=== PATIENT | female | born 1985 | race Caucasian/White ===

== ENCOUNTER 2019-04-08 13:51 | Emergency (ER) | payer SELFPAY ==
[2019-04-08 14:04] VITALS: BP 114/73; PULSE 91; RESP 16; TEMP 36.7; O2SAT 98; BMI 25.7
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
[2019-04-08 14:28] VITALS: BP 114/73; PULSE 80; RESP 16; O2SAT 98
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
[2019-04-08] MEDS: HYDROcodone-acetaminophen 5-325 mg Tablet 1 TAB PO (15:19)
[2019-04-08] MEDS: ondansetron 2 mg/ML SDV 2 mL 4 MG IVP (15:19)
[2019-04-08] MEDS: tetanus-dipt-pertussis 0.5 mL SDV IM (15:19)
[2019-04-08 15:22] LABS: Basophils % 0.3 %; Eosinophils # 0.1 10^3/uL (0.0-0.8); Eosinophils % 0.6 %; Hematocrit 37.3 % (37.0-47.0); Hemoglobin 12.1 g/dL (11.5-15.3); Lymphocytes # 1.4 10^3/uL (0.8-4.8); Lymphocytes % 14.6 %; Mean Corpuscular HGB Conc 32.4 g/dL (30.0-36.0); Mean Corpuscular Hemoglobin 30.6 pg (28.0-34.0); Mean Corpuscular Volume 94.4 fL (81-99); Mean Platelet Volume 10.1 fL (7.4-10.4); Monocytes # 0.7 10^3/uL (0.2-0.9); Monocytes % 7.9 %; Neutrophils # 7.1 10^3/uL (1.8-7.7); Neutrophils % 76.4 %; Nucleated Red Blood Cells % 0 %; Platelet Count 262 10^3/cmm (130-400); Red Blood Count 3.95 10^6/uL (4.1-5.3); Red Cell Distribution Width 12.3 % (12.1-15.1); White Blood Count 9.3 10^3/uL (4.0-10.0)
--- NOTE | 2019-04-08 15:25 | PC.NURSE ---
Patient ambulated to restroom for urine collection
--- NOTE | 2019-04-08 15:28 | PC.NURSE ---
Patient ambulating back from bathroom to room
[2019-04-08 15:35] LABS: Alanine Aminotransferase 8 U/L (0-33); Alkaline Phosphatase 69 IU/L (35-105); Anion Gap 15.1 (5-19); Aspartate Amino Transferase 16 U/L (0-32); Blood Urea Nitrogen 23 mg/dL (6-20); Calcium 9.7 mg/dL (8.5-10.5); Carbon Dioxide 23 mmol/L (22-29); Chloride 105 mmol/L (98-107); Globulin 2.7 g/dL (1.3-4.6); Glomerular Filtration Rate 115.9 mL/min (90-130); Glucose 112 mg/dL (65-115); Potassium 4.1 mmol/L (3.5-5.1); Sodium 139 mmol/L (136-145); Total Bilirubin 0.5 mg/dL (0.15-1.2); Total Protein 6.7 g/dL (6.6-8.7)
[2019-04-08 15:38] LABS: HCG Qualitative Urine. Negative (Negative)
--- NOTE | 2019-04-08 15:48 | PC.NURSE ---
Patient to CT via stretcher
[2019-04-08 16:38] VITALS: BP 116/69; PULSE 77; O2SAT 96
[2019-04-08] MEDS: mupirocin oint 22 gm 1 APPLIC TOPICAL (17:24)
[2019-04-08 17:25] VITALS: BP 116/69; PULSE 75; RESP 16; O2SAT 98
--- NOTE | 2019-04-08 17:25 | PC.NURSE ---
Wound dressing applied to right posterior elbow and right upper buttocks.
== END 2019-04-08 17:26 | disposition home or self-care (01) ==
PROVIDERS: Emergency Provider Family Medicine
DX: S30.810A Abrasion of lower back and pelvis, initial encounter (principal); S40.211A Abrasion of right shoulder, initial encounter; S50.311A Abrasion of right elbow, initial encounter; S40.811A Abrasion of right upper arm, initial encounter; S50.312A Abrasion of left elbow, initial encounter; V69.3XXA Occupant (driver) (passenger) of heavy transport vehicle injured in unspecified nontraffic accident, initial encounter; Y92.410 Unspecified street and highway as the place of occurrence of the external cause; F17.200 Nicotine dependence, unspecified, uncomplicated
CPT/HCPCS: 36415; 70450; 71045; 72040; 72072; 72100; 73030; 73080; 80053; 81025; 85025; 90471; 90715; 96361; 96374; 96375; 99281; 99282; 99283; J2405

== ENCOUNTER 2019-12-26 17:55 | Emergency (ER) | payer MEDICAID, SELFPAY ==
[2019-12-26 18:01] VITALS: BP 125/81; PULSE 89; RESP 18; TEMP 36.6; O2SAT 97; BMI 25.7
--- NOTE | 2019-12-26 18:19 | ED_ITS ---
HPI - URI/Sore Throat General: Chief Complaint: Upper Respiratory Infection Stated Complaint: Sinus Infection/Ear Aches/Loss of Smell Time Seen by Provider: 12/26/19 18:04 History of Present Illness: HPI Narrative: Patient complains about pain inside her left nostril left sinus maxillary area pain is been gone for couple days denies fever says she has had a lot of chills says she has had a loss of smell and taste now denies cough at original interviewed and says she has had a dry cough now for couple days MD elicited complaint: cough, nasal congestion and sinus pain Onset (ago): day(s) Consistency: constant Severity: moderate Description of mucous: watery Able to tolerate fluids by mouth: Yes Exacerbating factors: nothing Relieving factors: nothing Associated symptoms: Reports no associated symptoms and nasal congestion; Deny abdominal pain, chills, chest pain, fever(s), headache(s), nausea or vomiting Review of Systems Const: Denies: fever(s), chills or body aches Eyes: Denies: change in vision or blurry vision ENMT: Reports: nasal congestion and other (Sinus pain); Denies: throat pain Card: Denies: chest pain or dyspnea on exertion Resp: Reports: non-productive cough; Denies: dyspnea or productive cough GI: Denies: abdominal pain, nausea or vomiting Musc: Denies: extremity pain Skin/Breast: Denies: rash Neuro: Denies: headache(s) Psych: Denies: anxiety or depression Shay/Lymph: Denies: easy bruising PFSH ED PFSH: Social History Smoking and tobacco status: current every day smoker Physical Exam Const: COMMON NORMALS: no acute distress, average body habitus and patient oriented x3 HENMT: COMMON NORMALS: normocephalic HEAD & SCALP: normal to inspection and normocephalic FACE & SINUS: sinus tenderness OTHER: Does have pain left TMJ area Eye: COMMON NORMALS: conjunctivae normal GENERAL EYE: appearance normal, both eyes and all related structures CONJUNCTIVA: Yes conjunctivae normal Neck/C-Spine: COMMON NORMALS: no JVD Chest: COMMONS NORMALS: normal inspection of the chest Resp: COMMON NORMALS: normal respiratory effort and clear to auscultation bilaterally AUSCULTATION: clear to auscultation bilaterally Cardio: COMMON NORMALS: no JVD, regular rate and regular rhythm RATE: regular rate RHYTHM: regular rhythm GI: COMMON NORMALS: Normal to inspection, nondistended, normoactive bowel sounds present Extremity: COMMON NORMALS: normal to inspection and full ROM Neuro: COMMON NORMALS: patient oriented x3 Course Vital Signs: Vital signs: Vital Signs Temperature 97.9 F 12/26/19 18:01 Pulse Rate 89 12/26/19 18:01 Respiratory Rate 18 12/26/19 18:01 Blood Pressure 125/81 12/26/19 18:01 Pulse Oximetry 97 12/26/19 18:01 Discharge Plan Discharge Patient Disposition: Home Clinical Impression: Sinusitis Qualifiers: Sinusitis location: maxillary Chronicity: acute Recurrence: non-recurrent Qualified Code(s): J01.00 - Acute maxillary sinusitis, unspecified Condition: Stable Prescriptions: New Bactrim DS 800-160 mg tablet 1 tab PO BID 14 Days Qty: 28 RF: 0 prednisone 10 mg tablet 10 mg PO DAILY Qty: 7 RF: 0 No Action Tylenol Extra Strength 500 mg Tablet 1,000 mg PO PRN RF: 0 Discharge Orders: Discharge Order (Routine); Ordered 12/26/19 Ordered By: Abiel Hale Discharge Diet: Usual diet Discharge Activity: Increase activity as tolerated Patient Instructions: Sinusitis (ED) Activity Restrictions/Additional Instructions: Follow-up with medical provider as directed. Take medications as prescribed. Return to the ER or your medical provider if condition worsens. Please read and understand discharge instructions. If any questions ask please. Up with [facility] urgent care family practice clinic if no significant improvement. Discussed with him possibility of TMJ on that left side also please Coding Level of Care Code ED Internet Marketing Intern for Elkin Mendoza
[2019-12-26] MEDS: sulfamethoxazole-trimeth DS 160-800 mg Tablet 1 TAB PO (18:30)
[2019-12-26] MEDS: predniSONE 10 mg Tablet PO (18:30)
[2019-12-29 22:23] LABS: Quest SARS-CoV-2 RNA NOT DETECTED (NOT DETECTED)
--- NOTE | 2019-12-30 08:14 | PC.NURSE ---
Pt called and notified of negative COVID result.
== END 2019-12-26 18:40 | disposition home or self-care (01) ==
PROVIDERS: Emergency Provider Nurse Practitioner Family
DX: J01.00 Acute maxillary sinusitis, unspecified (principal); F17.210 Nicotine dependence, cigarettes, uncomplicated
CPT/HCPCS: 12345; 87635; 99282; 99283; J7512

== ENCOUNTER → 2020-08-06 11:37 | Outpatient (BNVA) | payer MEDICAID, SELFPAY | PROVIDERS: Visit Provider Nurse Practitioner Women's Health | DX: N92.6 Irregular menstruation, unspecified (principal); F19.11 Other psychoactive substance abuse, in remission | CPT/HCPCS: 80307; 81025 ==

== ENCOUNTER → 2020-08-07 17:50 | Outpatient (BNVA) | payer MEDICAID, SELFPAY | PROVIDERS: Visit Provider Nurse Practitioner Women's Health | DX: F19.90 Other psychoactive substance use, unspecified, uncomplicated (principal); N92.6 Irregular menstruation, unspecified | CPT/HCPCS: 80324; 80359 ==

== ENCOUNTER → 2020-08-08 10:44 | Outpatient (BNVA) | payer MEDICAID, SELFPAY | PROVIDERS: Visit Provider Nurse Practitioner Women's Health | DX: O09.899 Supervision of other high risk pregnancies, unspecified trimester (principal); Z3A.00 Weeks of gestation of pregnancy not specified | CPT/HCPCS: 81000 ==

== ENCOUNTER → 2020-09-11 09:10 | Outpatient (BNVA) | payer MEDICAID, SELFPAY | PROVIDERS: Visit Provider Obstetrics & Gynecology | DX: O20.9 Hemorrhage in early pregnancy, unspecified (principal) | CPT/HCPCS: 84702; 86850; 86900 ==

== ENCOUNTER → 2020-09-15 08:01 | Outpatient (BNVA) | payer MEDICAID, SELFPAY | PROVIDERS: Visit Provider Obstetrics & Gynecology | DX: O20.0 Threatened abortion (principal) | CPT/HCPCS: 81000 ==

== ENCOUNTER 2020-09-17 13:13 | Day surgery (SDC) | payer MEDICAID, SELFPAY ==
[2020-09-17] VITALS (10 sets, daily range): BP systolic 103–111; BP diastolic 44–76; PULSE 66–105; RESP 10–19; TEMP 36.3–37.7; O2SAT 95–100; BMI 25.7
--- NOTE | 2020-09-17 13:18 | ECG_ITS ---
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 Measurements Intervals [place] Rate: 66 P: 2 HI: 121 QRS: 86 QRSD: 94 T: 58 QT: 426 QTc: 448 Interpretive Statements SINUS RHYTHM No previous ECG available for comparison Electronically Signed On 09-22-2020 0:28:24 CDT by Natalie Bejarano M.D. [email or web address]
--- NOTE | 2020-09-17 13:22 | W.ED.GENADLT ---
HPI - General Adult General: Chief complaint: Vaginal Bleeding Stated complaint: MISCARRIAGE Time Seen by Provider: 09/17/20 13:17 History of Present Illness: HPI narrative: This patient is a 35-year-old female who presents to the emergency department for severe vaginal bleeding. Pelvic cramping. Patient reportedly followed up with [facility] this morning and subsequently had a miscarriage passing a fetus. Patient was seen 2 days ago and given Cytotec by [facility] due to a missed . To help pass the fetus. Patient apparently passed it in the lobby at the clinic. EMS reports the patient has had severe cramping and bleeding and has went through 5 large rodney pads due to vaginal bleeding. Patient has bleeding and blood stained down the legs to the ankles both legs. Patient complains significant amount of pain. Also reports patient's blood pressure was 100 systolic. Patient admits to using alcohol last night and today and smoking marijuana. According to medical records patient does have a history of methamphetamine abuse also. Will do medical evaluation and contact [facility] of record. Patient may need possible D&C. Associated symptoms: Deny chest pain, dyspnea, headache(s), nausea, rash, palpitations or vomiting Review of Systems General: Reports: 10 or more systems reviewed and unremarkable except in HPI and below Const: Denies: fever(s), chills, body aches or fatigue Eyes: Denies: change in vision or blurry vision ENMT: Denies: throat pain, hoarseness or mouth pain Card: Denies: chest pain, palpitations, irregular heart rhythm, edema, swelling of feet/ankles or lightheadedness Resp: Denies: dyspnea, productive cough, non-productive cough, wheezing or pain on inspiration GI: Denies: abdominal pain, nausea or vomiting : Reports: vaginal bleeding and pelvic pain; Denies: flank pain, difficulty voiding, dysuria, urinary frequency, urinary urgency or urinary hesitancy Musc: Denies: neck pain, back pain, extremity pain, extremity swelling, joint pain, joint swelling, joint redness, joint warmth or limited range of motion Skin/Breast: Denies: rash, pruritus, erythema or skin tenderness Neuro: Denies: headache(s), numbness in extremities or weakness in extremities Psych: Denies: anxiety or depression PFSH ED PFSH: Medical History Alcohol abuse Chronic use since 2014--she stopped all use of alcohol 06/30/2020 Drug use No pertinent past medical history neghx: htn,dm,thyroid,dvt/pe PCP: None Surgical History No pertinent past surgical history Family History Denies family history of Colon cancer Ovarian cancer Diabetes Heart disease Hypercholesteremia Breast cancer Hypertension Uterine cancer Thyroid disease Stroke Physical Exam Const: COMMON NORMALS: no acute distress, average body habitus, patient oriented x3, no limitations, healthy appearing, alert and well nourished HENMT: COMMON NORMALS: normocephalic, atraumatic, hearing grossly normal bilaterally, external ears normal, EAC's normal, TM's normal bilaterally, Normal external nose present, Normal nasal mucous membranes and turbinates present, moist oral mucous membranes, oropharynx normal, dentition normal and gingiva normal HEAD & SCALP: normocephalic and atraumatic NOSE: Normal external nose present and Normal nasal mucous membranes and turbinates present EXTERNAL EAR: Yes external ears normal EXTERNAL AUDITORY CANAL: EAC's normal TYMPANIC MEMBRANE: TM's normal bilaterally Neck/C-Spine: COMMON NORMALS: full ROM, no lymphadenopathy, supple, no meningeal signs, no JVD, Thyroid normal and No carotid bruits THYROID: Thyroid normal Chest: COMMONS NORMALS: normal inspection of the chest, normal palpation of entire chest wall, normal inspection of the breasts and normal palpation of the breasts Breast/axilla inspection: Yes normal inspection of the breasts BREAST/AXILLA PALPATION: Yes normal palpation of the breasts Resp: COMMON NORMALS: normal respiratory effort, No retractions, No use of accessory muscles, clear to auscultation bilaterally and percussion normal AUSCULTATION: clear to auscultation bilaterally PERCUSSION: percussion normal Cardio: COMMON NORMALS: no JVD, regular rate, regular rhythm, S1 normal heart sound present, S2 normal heart sound present, No gallops present (Cardio), No clicks present (Cardio), No murmurs present (Cardio), No rub (Cardio) and Peripheral pulses 2+ throughout RATE: regular rate RHYTHM: regular rhythm HEART SOUNDS: S1 normal heart sound present and S2 normal heart sound present PERIPHERAL PULSES: Peripheral pulses 2+ throughout GI: COMMON NORMALS: Normal to inspection, nondistended, normoactive bowel sounds present, Soft to palpation, non-tender, No hepatosplenomegaly present, no masses and no bruits PALPATION: Yes Soft to palpation and Yes No hepatosplenomegaly present : EXTERNAL FEMALE EXAM: Yes other (Significant vaginal bleeding dried blood down legs bilaterally. Will defer) SPECULUM EXAM - VAGINA: Yes other (Deferred vaginal exam to [facility].) Back/Pelvis: COMMON NORMALS: thoracic and lumbar spine normal to inspection, no thoracic nor lumbar tenderness, thoraco-lumbar ROM normal and straight leg raise negative bilaterally Extremity: COMMON NORMALS: normal to inspection, full ROM, capillary refill normal, no joint enlargement, no clubbing, cyanosis or edema, no calf tenderness and no pedal edema Neuro: COMMON NORMALS: patient oriented x3 SENSORIUM/ORIENTATION: Yes alert MENINGEAL SIGNS: Yes no meningeal signs Course Reevaluation(s): Reevaluation #1: Dr. Roy at the bedside. Reports a vaginal exam. Patient pushes and delivers intact amniotic sac with fetus. Shortly thereafter placenta. She orders Cytotec at the bedside per patient patient will be discharged home after bleeding controlled. Patient request to take fetus home with her and will send the bucket to [facility] in her yard. Dr. Crystal approves. Time: 14:54 Consultations: Consultation #1: I did discuss at length with patient's [facility] Dr. Crystal. She will see patient in the emergency department. Most likely will take to the OR for a D&C. She request not to give the patient morphine but request the patient receive Toradol. She also states that she will perform the vaginal exam. Time: 13:26 Consultation #2: Dr. Roy at the bedside. Reports a vaginal exam. Patient pushes and delivers intact amniotic sac with fetus. Shortly thereafter placenta. She orders Cytotec at the bedside per patient patient will be discharged home after bleeding controlled. Patient request to take fetus home with her and will send the bucket to [facility] in her yard. Dr. Crystal approves. Time: 14:54 Consultation #3: Dr. Crystal at the bedside and attempted to suction vaginal area. Patient still has not passed placenta. Patient will go to the OR for D&C. Vital Signs: Vital signs: Vital Signs Temperature 97.3 F L 09/17/20 13:18 Pulse Rate 105 H 09/17/20 13:18 Respiratory Rate 16 09/17/20 13:18 Blood Pressure 111/44 09/17/20 13:18 Pulse Oximetry 97 09/17/20 13:18 MDM - General Adult MDM Narrative: Medical decision making narrative: This patient is a 35-year-old female who presents to the emergency department for severe vaginal bleeding. Pelvic cramping. Patient reportedly followed up with [facility] this morning and subsequently had a miscarriage passing a fetus. Patient was seen 2 days ago and given Cytotec by [facility] due to a missed . To help pass the fetus. Patient apparently passed it in the lobby at the clinic. EMS reports the patient has had severe cramping and bleeding and has went through 5 large rodney pads due to vaginal bleeding. Patient has bleeding and blood stained down the legs to the ankles both legs. Patient complains significant amount of pain. Also reports patient's blood pressure was 100 systolic. Patient admits to using alcohol last night and today and smoking marijuana. According to medical records patient does have a history of methamphetamine abuse also. Will do medical evaluation and contact [facility] of record. Patient may need possible D&C. I did discuss at length with patient's [facility] Dr. Crystal. She will see patient in the emergency department. Most likely will take to the OR for a D&C. She request not to give the patient morphine but request the patient receive Toradol. She also states that she will perform vaginal exam. Dr. Roy at the bedside. Reports a vaginal exam. Patient pushes and delivers intact amniotic sac with fetus. Shortly thereafter placenta. She orders Cytotec at the bedside per patient patient will be discharged home after bleeding controlled. Patient request to take fetus home with her and will send the bucket to [facility] in her yard. Dr. Crystal approves. Dr. Crystal at the bedside and attempted to suction vaginal area. Patient still has not passed placenta. Patient will go to the OR for D&C. Lab Data: Labs: Lab Results 09/17/20 09/17/20 09/17/20 Range/Units 13:35 13:35 13:35 WBC 6.3 (4.0-10.0) 10^3/ uL RBC 3.82 L (4.1-5.3) 10^6/u L Hgb 12.1 (11.5-15.3) g/dL Hct 35.4 L (37.0-47.0) % MCV 92.7 (81-99) fL MCH 31.7 (28.0-34.0) pg MCHC 34.2 (30.0-36.0) g/dL RDW 12.7 (12.1-15.1) % Plt Count 219 (130-400) 10^3/c mm MPV 10.2 (7.4-10.4) fL Neut % (Auto) 74.8 % Lymph % (Auto) 16.3 % [place] % (Auto) 6.7 % Eos % (Auto) 1.6 % Baso % (Auto) 0.3 % Neut # (Auto) 4.69 (1.8-7.7) 10^3/u L Lymph # (Auto) 1.0 (0.8-4.8) 10^3/u L [place] # (Auto) 0.4 (0.2-0.9) 10^3/u L Eos # (Auto) 0.1 (0.0-0.8) 10^3/u L Baso # (Auto) 0.0 (0.0-0.1) 10^3/u L Nucleated RBC % (a uto) 0 % Nucleated RBCs # 0.0 /100WBC PT 12.90 (12.1-14.9) SECO NDS INR 0.94 (0.8-1.2) APTT 35.2 (23.9-36.7) SECO NDS Sodium 136 (136-145) mmol/L Potassium 3.6 (3.5-5.1) mmol/L Chloride 104 (98-107) mmol/L Carbon Dioxide 22 (22-29) mmol/L Anion Gap 13.6 (5-19) BUN 10 (6-20) mg/dL Creatinine 0.5 (0.5-0.9) mg/dL GFR Calculation 141.2 H (90-130) mL/min Glucose 111 (65-115) mg/dL Calculated Osmolal ity 282 L (285-295) mOsm/k g Calcium 8.5 (8.5-10.5) mg/dL Total Bilirubin 0.2 (0.15-1.2) mg/dL AST 12 (0-32) U/L ALT 9 (0-33) U/L Alkaline Phosphata se 67 (35-105) IU/L Total Protein 6.1 L (6.6-8.7) g/dL Albumin 3.9 (3.5-5.2) g/dL Globulin 2.2 (1.3-4.6) g/dL Ser , [place] i-Qnt 388.70 mIU/mL Ethyl Alcohol < 10 (0-10) mg/dL Blood Type Rho(D) Type 09/17/20 Range/Units 14:25 WBC (4.0-10.0) 10^3/ uL RBC (4.1-5.3) 10^6/u L Hgb (11.5-15.3) g/dL Hct (37.0-47.0) % MCV (81-99) fL MCH (28.0-34.0) pg MCHC (30.0-36.0) g/dL RDW (12.1-15.1) % Plt Count (130-400) 10^3/c mm MPV (7.4-10.4) fL Neut % (Auto) % Lymph % (Auto) % [place] % (Auto) % Eos % (Auto) % Baso % (Auto) % Neut # (Auto) (1.8-7.7) 10^3/u L Lymph # (Auto) (0.8-4.8) 10^3/u L [place] # (Auto) (0.2-0.9) 10^3/u L Eos # (Auto) (0.0-0.8) 10^3/u L Baso # (Auto) (0.0-0.1) 10^3/u L Nucleated RBC % (a uto) % Nucleated RBCs # /100WBC PT (12.1-14.9) SECO NDS INR (0.8-1.2) APTT (23.9-36.7) SECO NDS Sodium (136-145) mmol/L Potassium (3.5-5.1) mmol/L Chloride (98-107) mmol/L Carbon Dioxide (22-29) mmol/L Anion Gap (5-19) BUN (6-20) mg/dL Creatinine (0.5-0.9) mg/dL GFR Calculation (90-130) mL/min Glucose (65-115) mg/dL Calculated Osmolal ity (285-295) mOsm/k g Calcium (8.5-10.5) mg/dL Total Bilirubin (0.15-1.2) mg/dL AST (0-32) U/L ALT (0-33) U/L Alkaline Phosphata se (35-105) IU/L Total Protein (6.6-8.7) g/dL Albumin (3.5-5.2) g/dL Globulin (1.3-4.6) g/dL Ser , [place] i-Qnt mIU/mL Ethyl Alcohol (0-10) mg/dL Blood Type O Positive Rho(D) Type Positive / 4+ EKG Data^: EKG 1: Attestation: I personally reviewed and interpreted this EKG as follows: EKG interpretation date: 09/17/20 EKG interpretation time: 14:51 Prior EKG tracings: not available for review Interpretation: Normal sinus rhythm heart rate 66 Discharge Plan Discharge Patient Disposition: Placed in Observation Clinical Impression: Hemorrhage due to retained products of conception, Vaginal bleeding, Drug use, Alcohol abuse, Spontaneous Condition: Stable Prescriptions: No Action hydrocodone-acetaminophen 5-300 mg tablet 1 tab PO Q4H PRNRF: 0 misoprostol [Cytotec] 200 mcg tablet 600 mcg PO Q6H Qty: 12 RF: 0 promethazine 25 mg tablet 25 mg PO Q6H PRN (Reason: nausea and vomiting) Qty: 30 RF: 0 ibuprofen 600 mg tablet 600 mg PO Q6H PRN (Reason: pain) Qty: 30 RF: 0 Referrals: Heather Crystal MD [Physician] - Patient Instructions: Opioid Safety Activity Restrictions/Additional Instructions: Continue with outpatient care as advised by Dr. Crystal [facility]. Follow-up in the [facility] clinic as needed. Coding Level of Care Code ED Motor Boss for Chg Fwd Exam Comprehensive
[2020-09-17] MEDS: ondansetron 2 mg/ML SDV 2 mL 4 MG IVP (13:44)
[2020-09-17] MEDS: sodium chloride 0.9% 1,000 ML 999 ML IV (13:44)
[2020-09-17] MEDS: ketorolac 30 mg/mL INJ 15 MG IVP (13:45)
[2020-09-17 14:00] LABS: Basophils % 0.3 %; Eosinophils # 0.1 10^3/uL (0.0-0.8); Eosinophils % 1.6 %; Hematocrit 35.4 % (37.0-47.0); Hemoglobin 12.1 g/dL (11.5-15.3); Lymphocytes % 16.3 %; Mean Corpuscular HGB Conc 34.2 g/dL (30.0-36.0); Mean Corpuscular Hemoglobin 31.7 pg (28.0-34.0); Mean Corpuscular Volume 92.7 fL (81-99); Mean Platelet Volume 10.2 fL (7.4-10.4); Monocytes # 0.4 10^3/uL (0.2-0.9); Monocytes % 6.7 %; Neutrophils # 4.69 10^3/uL (1.8-7.7); Neutrophils % 74.8 %; Nucleated Red Blood Cells % 0 %; Platelet Count 219 10^3/cmm (130-400); Red Blood Count 3.82 10^6/uL (4.1-5.3); Red Cell Distribution Width 12.7 % (12.1-15.1); White Blood Count 6.3 10^3/uL (4.0-10.0)
[2020-09-17 14:12] LABS: INR 0.94 (0.8-1.2)
[2020-09-17 14:13] LABS: Partial Thromboplastin Time 35.2 SECONDS (23.9-36.7)
[2020-09-17 14:43] LABS: Alanine Aminotransferase 9 U/L (0-33); Albumin Level 3.9 g/dL (3.5-5.2); Alkaline Phosphatase 67 IU/L (35-105); Anion Gap 13.6 (5-19); Aspartate Amino Transferase 12 U/L (0-32); Blood Urea Nitrogen 10 mg/dL (6-20); Calcium 8.5 mg/dL (8.5-10.5); Carbon Dioxide 22 mmol/L (22-29); Chloride 104 mmol/L (98-107); Creatinine Clr Calc Pharmacy 150.2558; Globulin 2.2 g/dL (1.3-4.6); Glomerular Filtration Rate 141.2 mL/min (90-130); Glucose 111 mg/dL (65-115); Osmolality Calculated 282 mOsm/kg (285-295); Potassium 3.6 mmol/L (3.5-5.1); Sodium 136 mmol/L (136-145); Total Bilirubin 0.2 mg/dL (0.15-1.2); Total Protein 6.1 g/dL (6.6-8.7)
[2020-09-17 14:45] LABS: Alcohol Level < 10 mg/dL (0-10)
--- NOTE | 2020-09-17 15:21 | PC.NURSE ---
products of conception believed to have been passed at previous facility. upon pelvic exam, amniotic sac found to be delivering. amniotic sac delivered with assistance from Dr. Crystal during pelvic. pt requested to keep amniotic sac and contents to be buried at home. pt provided with specimen container to take home.
[2020-09-17] MEDS: miSOPROStol 200 mcg Tablet 600 MCG PO (15:30)
--- NOTE | 2020-09-17 15:31 | P.CONIM_ITS ---
Providers/Reason For Consult Consulting Physician/Specialty*: hemodialysis technician Reason for Consult*: incomplete with bleeding Requesting Physician: Dr. Casey History of Present Illness History of Present Illness Francesca Tang is a 35 year old female who has a known missed at about 13 weeks. She presented to the ER by EMS after she went to her physician's office and passed the baby on the lobby floor . According to the ER physician, when she arrived, she had soaked through several chucks pads enroute and was continuing to have heavy bleeding. The patient reports that she took the cytotec that I gave her. She was having some mild cramping this morning. She took a third dose of her medication about 7 am and the cramping increased. She admits to alcohol and marijuana use to help with the pain. She started bleeding and then went to her physician's office where she was transported here. Review of Systems General: Reports: 10 or more systems reviewed and unremarkable except in HPI and below Meds/Allergies Home Medications and Allergies Home Medications Medication Instructions Recorded Confirmed Last Taken Type hydrocodone 5 mg-acetaminophen 300 1 tab PO Q4H PRN 09/15/20 09/15/20 Unknown History mg tablet ibuprofen 600 mg tablet 600 mg PO Q6H PRN #30 tab 09/15/20 09/15/20 Unknown Rx misoprostol 200 mcg tablet 600 mcg PO Q6H #12 tab 09/15/20 09/15/20 Unknown Rx promethazine 25 mg tablet 25 mg PO Q6H PRN #30 tab 09/15/20 09/15/20 Unknown Rx Allergies Allergy/AdvReac Type Severity Reaction Status Date / Time No Known Allergies Allergy Verified 09/15/20 08:01 PFSH Acute PFSH: Medical History Alcohol abuse Chronic use since 2014--she stopped all use of alcohol 06/30/2020 Drug use No pertinent past medical history neghx: htn,dm,thyroid,dvt/pe PCP: None Surgical History No pertinent past surgical history Family History Denies family history of Colon cancer Ovarian cancer Diabetes Heart disease Hypercholesteremia Breast cancer Hypertension Uterine cancer Thyroid disease Stroke Female Reproductive History: : 4 Vitals/I&O/Wt Last Vital Signs Temp 97.3 F L 09/17/20 13:18 Pulse 105 H 09/17/20 13:18 Resp 16 09/17/20 13:18 BP 111/44 09/17/20 13:18 Pulse Ox 97 09/17/20 13:18 Weight last 48 hrs Weight 150 lb Physical Exam Narrative: EXAM NARRATIVE: The patient is agitated and pacing in room. She stops and squats on the toilet and begins pacing again. She appears to be having pain and is in moderate distress. She has refused ultrasound and blood draws. She is requesting pain medication. Const: COMMON NORMALS: average body habitus, patient oriented x3, healthy appearing and well nourished GENERAL APPEARANCE: well kempt, in distress and anxious ORIENTATION/CONSCIOUSNESS: Yes awake, Yes oriented to person, Yes oriented to place and Yes oriented to time GI: PALPATION: Yes Tenderness to palpation present (GI) (low abdomen tenderness, no guarding) : SPECULUM EXAM - VAGINA: Yes tissue present in vagina (placental tissue visualized in the cervical os.) SPECULUM EXAM - CERVIX: Yes Cervical os open and Yes Other cervical findings present (amniotic membrane visualized in the cervical os) OB/EXTERNAL & SPECULUM: tissue present in vagina (placental tissue visualized in the cervical os.) and Cervical os open OTHER: The amniotic sac is visible in the cervical os on speculum exam. using the suction catheter, the clots and blood are removed. The patient was told to push and the amniotic sac passed. The placenta remains in the cervix/uterus. Bleeding is minimal. I had her push, but, the placenta would not deliver. She was given 600 mcg of cytotec orally. She has not passed the placenta and will be taken for D&C. Extremity: COMMON NORMALS: normal to inspection, no clubbing, cyanosis or edema and no calf tenderness Neuro: COMMON NORMALS: patient oriented x3 SENSORIUM/ORIENTATION: Yes oriented to person, Yes oriented to place and Yes oriented to time Psych: COMMON NORMALS: speech normal APPEARANCE: Yes grossly normal and Yes well kempt ATTITUDE: Yes uncooperative, Yes Belligerent attititude/behavior present, Yes agitated and Yes Other attitude/behavior findings present (Psych) (patient does appear to be having pain.) SPEECH: Yes normal speech A&P Assessment and plan (1) Vaginal bleeding: brisk vaginal bleeding plan Dilation and curettage Status: Acute (2) Incomplete : retained placenta present will take the patient to OR for D&C Status: Acute Coding Level of Care Code Acute Coding File Clerk for [facility] Fwd Exam Detailed Diagnoses Vaginal bleeding N93.9 Incomplete O03.4
[2020-09-17] MEDS: sodium chloride 0.9% 1,000 ML 30 ML IV (17:30)
[2020-09-17] MEDS: midazolam 1 mg/mL INJ 2 mL 2 MG IVP (17:51)
--- NOTE | 2020-09-17 18:00 | P.ANESASSM_ITS ---
Pre-Anesthetic Assessment Pre-Anesthetic Assessment: Height/Weight: Height 1.63 m Weight 68.039 kg Temp Pulse Resp BP Pulse Ox 99.8 F H 81 19 H 106/61 96 09/17/20 17:15 09/17/20 17:15 09/17/20 17:15 09/17/20 17:15 09/17/20 17:15 Preop Diagnosis: incomplete Proposed Procedure: Operation Date: 09/17/20 18:00 Proposed Procedures p Dilation And Curettage (D&C)(Not Applicable) - Heather Crystal MD Was Beta Jennifer taken within 24 hours: N/A Was Clonidine taken within 24 hours: N/A Social: Social History: Alcohol and Tobacco Comment: Drug and ETOH abuse Exam: Pre-Anes Outpt Exam: alert, oriented x 3 and regular rate & rhythm Airway: Submandibular: WNL Cervical ROM: WNL MP: 2 Dentition: Chipped Pulmonary: Pulmonary: COPD Anesthetic Plan: ASA status: 3E Anesthesia: General (RSI) Risk of > 500 ml blood loss (7ml/kg in children): Yes, adequate IV access and fluids planned Meds/Allergies Current Medications: Current Medications Generic Name Dose Route Start Last Admin Trade Name Freq PRN Reason Stop Dose Admin Midazolam HCl 2 mg 09/17/20 17:17 09/17/20 17:51 Midazolam 1 Mg/M l Inj 2 Ml IVP 2 mg Q5M PRN Administration Preop Anxiety PFSH Anesthesia PFSH: Medical History Alcohol abuse Chronic use since 2014--she stopped all use of alcohol 06/30/2020 Drug use No pertinent past medical history neghx: htn,dm,thyroid,dvt/pe PCP: None Surgical History No pertinent past surgical history Family History Denies family history of Colon cancer Ovarian cancer Diabetes Heart disease Hypercholesteremia Breast cancer Hypertension Uterine cancer Thyroid disease Stroke Female Reproductive History: : 4 Data Anesthesia CBC & Chem 7: 09/17/20 13:35 09/17/20 13:35 Other Labs: Laboratory Results - last 48 hr 09/17/20 09/17/20 09/17/20 13:35 13:35 13:35 WBC 6.3 RBC 3.82 L Hgb 12.1 Hct 35.4 L MCV 92.7 MCH 31.7 MCHC 34.2 RDW 12.7 Plt Count 219 MPV 10.2 Neut % (Auto) 74.8 Lymph % (Auto) 16.3 [place] % (Auto) 6.7 Eos % (Auto) 1.6 Baso % (Auto) 0.3 Neut # (Auto) 4.69 Lymph # (Auto) 1.0 [place] # (Auto) 0.4 Eos # (Auto) 0.1 Baso # (Auto) 0.0 Nucleated RBC % (auto) 0 Nucleated RBCs # 0.0 PT 12.90 INR 0.94 APTT 35.2 Sodium 136 Potassium 3.6 Chloride 104 Carbon Dioxide 22 Anion Gap 13.6 BUN 10 Creatinine 0.5 GFR Calculation 141.2 H Glucose 111 Calculated Osmolality 282 L Calcium 8.5 Total Bilirubin 0.2 AST 12 ALT 9 Alkaline Phosphatase 67 Total Protein 6.1 L Albumin 3.9 Globulin 2.2 Ser , Semi-Qnt 388.70 Ethyl Alcohol < 10 Blood Type Rho(D) Type 09/17/20 14:25 WBC RBC Hgb Hct MCV MCH MCHC RDW Plt Count MPV Neut % (Auto) Lymph % (Auto) [place] % (Auto) Eos % (Auto) Baso % (Auto) Neut # (Auto) Lymph # (Auto) [place] # (Auto) Eos # (Auto) Baso # (Auto) Nucleated RBC % (auto) Nucleated RBCs # PT INR APTT Sodium Potassium Chloride Carbon Dioxide Anion Gap BUN Creatinine GFR Calculation Glucose Calculated Osmolality Calcium Total Bilirubin AST ALT Alkaline Phosphatase Total Protein Albumin Globulin Ser , Semi-Qnt Ethyl Alcohol Blood Type O Positive Rho(D) Type Positive / 4+ Cardiac Studies: No Data to Display
--- NOTE | 2020-09-17 18:51 | PM.OP ---
Operative Report Date of procedure: September 17, 2020 Pre-op Diagnosis: incomplete Post-op diagnosis: same Post-op Findings: retained placenta Procedure Done: suction dilation and curettage Specimens removed/disposition: products of conception to pathology Surgeon: Heather Crystal Anesthesia: General Estimated blood loss (mL): 50 IV fluids (mL): 400 Urine output (mL): 30 Complications: none Findings: 12 week sized uterus with very dilated cervix and retained placanta Condition: stable Disposition: PACU Brief History: The patient presented to clinic as an ER follow up for missed . She was given cytotec to take to aid in passing the tissue. She started having extreme cramping and some heavier bleeding. She presented to the clinic in [place], where I was told she delivered the baby on the floor of the lobby. She was transported to our ER due to the continued heavy bleeding. On exam here, the amniotic sac was visible. She actually delivered the sac and fetus intace here. The placenta was retained. She was taken to the OR for removal by D&C Procedure: The patient was taken to the operating room where general anesthesia was administered and found to be adequate. She was prepped and draped in the normal sterile fashion in the dorsal lithotomy position in [facility]. The bladder was drained. A weighted speculum was placed into the vagina and the anterior lip of the cervix grasped with a single-tooth tenaculum. The cervix was already dilated and a 12 [place] suction catheter was introduced into the uterine cavity. The suction was activated and products of conception were removed. I made 2 passes with the suction catheter followed by 1 pass with a sharp curette the texture was gritty. The patient began to have some more bleeding and I made one final pass with the suction curette and also had anesthesia give her some Pitocin. The bleeding ceased the uterus clamped down and all instruments were removed. The patient tolerated the procedure well. Sponge lap and needle counts were correct x3. She was taken to the recovery room in stable condition.
--- NOTE | 2020-09-17 19:27 | PM.DCS ---
Discharge Providers Date of Discharge: September 17, 2020 Attending Provider at Discharge: Heather Crystal MD Diagnoses at Discharge Discharge Diagnosis (1) Vaginal bleeding: Status: Acute (2) Incomplete : Status: Acute Reason for Visit Reason for Visit: MISCARRIAGE Hospital Course Hospital Course The patient presented to the ER. She delivered the sac, but failed to deliver the placenta. She was taken for a suction D&C. She did well after her surgery and was ready for discharge. Physical Exam Urinary Catheter Management^: Straight: Cath Placed During This Visit: no Discharge Data Data Completed and Pending: Pending at discharge Category Date Time Status Drug Screen, Urin e Routine Lab 09/17/20 18:32 Ordered Urinalysis Stat Lab 09/17/20 13:18 Uncollected Pathology: Surgic al [PTH] Routine Pth 09/17/20 19:18 Ordered Labs from last 24 hours 09/17/20 09/17/20 09/17/20 14:25 13:35 13:35 WBC RBC Hgb Hct MCV MCH MCHC RDW Plt Count MPV Neut % (Auto) Lymph % (Auto) [place] % (Auto) Eos % (Auto) Baso % (Auto) Neut # (Auto) Lymph # (Auto) [place] # (Auto) Eos # (Auto) Baso # (Auto) Nucleated RBC % (a uto) Nucleated RBCs # PT 12.90 INR 0.94 APTT 35.2 Sodium 136 Potassium 3.6 Chloride 104 Carbon Dioxide 22 Anion Gap 13.6 BUN 10 Creatinine 0.5 GFR Calculation 141.2 H Glucose 111 Calculated Osmolal ity 282 L Calcium 8.5 Total Bilirubin 0.2 AST 12 ALT 9 Alkaline Phosphata se 67 Total Protein 6.1 L Albumin 3.9 Globulin 2.2 Ser , Heidy i-Qnt 388.70 Ethyl Alcohol < 10 Blood Type O Positive Rho(D) Type Positive / 4+ 09/17/20 13:35 WBC 6.3 RBC 3.82 L Hgb 12.1 Hct 35.4 L MCV 92.7 MCH 31.7 MCHC 34.2 RDW 12.7 Plt Count 219 MPV 10.2 Neut % (Auto) 74.8 Lymph % (Auto) 16.3 [place] % (Auto) 6.7 Eos % (Auto) 1.6 Baso % (Auto) 0.3 Neut # (Auto) 4.69 Lymph # (Auto) 1.0 [place] # (Auto) 0.4 Eos # (Auto) 0.1 Baso # (Auto) 0.0 Nucleated RBC % (a uto) 0 Nucleated RBCs # 0.0 PT INR APTT Sodium Potassium Chloride Carbon Dioxide Anion Gap BUN Creatinine GFR Calculation Glucose Calculated Osmolal ity Calcium Total Bilirubin AST ALT Alkaline Phosphata se Total Protein Albumin Globulin Ser , [place] i-Qnt Ethyl Alcohol Blood Type Rho(D) Type Vitals: Last Vital Signs Temp 98.7 F 09/17/20 18:52 Pulse 71 09/17/20 19:20 Resp 16 09/17/20 19:20 BP 106/69 09/17/20 19:20 Pulse Ox 95 09/17/20 19:20 Discharge Plan Discharge Patient Disposition: Home Condition: Stable Prescriptions: New Keflex 750 mg capsule 750 mg PO BID 10 Days Qty: 20 RF: 0 Flagyl 500 mg tablet 500 mg PO Q8H 10 Days Qty: 30 RF: 0 Continued hydrocodone-acetaminophen 5-300 mg tablet 1 tab PO Q4H PRN (Reason: Pain) RF: 0 promethazine 25 mg tablet 25 mg PO Q6H PRN (Reason: nausea and vomiting) Qty: 30 RF: 0 Discontinued misoprostol [Cytotec] 200 mcg tablet 600 mcg PO Q6H Qty: 12 RF: 0 No Action ibuprofen 600 mg tablet 600 mg PO Q6H PRN (Reason: pain) Qty: 30 RF: 0 Discharge Orders: Discharge Order (Routine); Ordered 09/17/20 Ordered By: Heather Crystal Other Ambulatory Orders: Drug Screen, Urine (Routine) Timeframe: 20200917 Facility: [facility] - Location: Lab - Main Lab Ordered By: Heather Crystal Referrals: Heather Crystal MD [Physician] - Patient Instructions: Opioid Safety Activity Restrictions/Additional Instructions: Continue with outpatient care as advised by Dr. Crystal BOARD OPERATOR. Follow-up in the BOARD OPERATOR clinic as needed. Discharge Attestations Time Spent in Discharge Care*: less than 30 min Quality Metrics Clinical Quality Measures During this hospital stay, did patient experience: None Coding Level of Care Code Acute Chg FW DC note Diagnoses Vaginal bleeding N93.9 Incomplete O03.4
--- NOTE | 2020-09-18 08:30 | ANE.PACU2 ---
Inpatient post-anesthesia follow up: Airway intact: Yes Vital signs: Temperature 98.1 F Pulse Rate [Right Radial] 105 Pulse Rate 72 Respiratory Rate 17 Blood Pressure [Ri ght Arm] 111/44 Blood Pressure 108/75 Pulse Oximetry 99 Oxygen Delivery Me thod Room Air Oxygen Flow Rate Fraction of Inspir ed Oxygen Hydration adequate: Yes Nausea and vomiting: No Pain level: 2 Mental status: Baseline
== END 2020-09-17 20:08 | disposition home or self-care (01) ==
LOC: ER 16:39 → OPS 16:50
PROVIDERS: Emergency Provider Emergency Medicine; Visit Provider Obstetrics & Gynecology
PROC: (CPT 58120; principal; 2020-09-17 18:00)
DX: O03.4 Incomplete spontaneous abortion without complication (principal); N93.9 Abnormal uterine and vaginal bleeding, unspecified; J44.9 Chronic obstructive pulmonary disease, unspecified
CPT/HCPCS: 59812; 80053; 80307; 84702; 85025; 85610; 85730; 86900; 88305; 88307; 93005; 96361; 96374; 96375; E0352; J0330; J1100; J1885; J2250; J2405; J2704; J3010; J7030

== ENCOUNTER 2022-02-15 04:16 | Emergency (ER) | payer MEDICAID, SELFPAY ==
[2022-02-15 04:20] VITALS: BP 132/78; PULSE 86; RESP 16; TEMP 36.8; O2SAT 99; BMI 21.4
[2022-02-15 05:38] LABS: SARS Covid-2 Antigen negative (Negative)
[2022-02-15 06:02] LABS: Influenza A by IFA negative (Negative); Influenza B by IFA negative (Negative)
[2022-02-15 06:15] VITALS: RESP 18; O2SAT 96
[2022-02-15] MEDS: oxyCODONE-APAP 5-325 mg Tablet 2 TAB PO (06:15)
[2022-02-15] MEDS: azithromycin 250 mg Tablet 500 MG PO (06:15)
--- NOTE | 2022-02-18 22:30 | W.ED.FEVER ---
HPI - Fever General: Chief Complaint: Fever Stated Complaint: fever, flu symptoms 1 week Time Seen by Provider: 02/15/22 05:04 Source: patient History of Present Illness: 36yo female with a 1 wk hx of fever, headache, sore throat, cough and congestion with nausea. MD elicited complaint: fever Associated symptoms: Reports chills, cough, nasal congestion and nausea; Deny abdominal pain, flank pain, chest pain, diarrhea, short of breath or vomiting Review of Systems Const: Reports: chills ENMT: Reports: throat pain and nasal congestion Card: Denies: chest pain Resp: Reports: non-productive cough; Denies: dyspnea or productive cough GI: Reports: nausea; Denies: abdominal pain, vomiting or diarrhea : Denies: flank pain Skin/Breast: Denies: rash Psych: Reports: anxiety PFSH ED PFSH: Medical History Alcohol abuse Chronic use since 2014--she stopped all use of alcohol 06/30/2020 Drug use No pertinent past medical history neghx: htn,dm,thyroid,dvt/pe PCP: None Surgical History No pertinent past surgical history Family History Denies family history of Colon cancer Ovarian cancer Diabetes Heart disease Hypercholesteremia Breast cancer Hypertension Uterine cancer Thyroid disease Stroke Social History Smoking and tobacco status: former smoker Alcohol intake: current Female Reproductive History: Date of last menstrual period: 02/08/22 Physical Exam Const: COMMON NORMALS: no acute distress and alert GENERAL APPEARANCE: cooperative; not ill appearing and not frail appearing HENMT: COMMON NORMALS: normocephalic, atraumatic and Normal external nose present HEAD & SCALP: normocephalic and atraumatic FACE & SINUS: normal facial exam and face symmetric NOSE: Normal external nose present THROAT: posterior oropharynx normal Eye: COMMON NORMALS: Equal, round and reactive pupils present and EOMs intact bilaterally PUPIL: Yes Equal, round and reactive pupils present Neck/C-Spine: COMMON NORMALS: no meningeal signs GENERAL: Yes trachea midline Chest: CHEST: Yes Symmetrical chest wall rise Resp: COMMON NORMALS: normal respiratory effort, No retractions, No use of accessory muscles and clear to auscultation bilaterally AUSCULTATION: clear to auscultation bilaterally Cardio: COMMON NORMALS: regular rate and regular rhythm RATE: regular rate RHYTHM: regular rhythm GI: COMMON NORMALS: Normal to inspection, nondistended, normoactive bowel sounds present Extremity: COMMON NORMALS: no pedal edema Neuro: JAX COMA SCALE: document GCS findings Jax coma scale eye opening: Spontaneous [place] coma scale verbal response: Orientated [place] coma scale motor response: Obey commands [place] coma scale total score: 15 SENSORIUM/ORIENTATION: Yes alert MENINGEAL SIGNS: Yes no meningeal signs SENSORY EXAM: Yes extremities (intact) Psych: COMMON NORMALS: speech normal SPEECH: Yes normal speech Skin: COMMON NORMALS: no rashes or lesions noted GENERAL SKIN EXAM: no rashes or lesions noted Course Vital Signs: Vital signs: Vital Signs Temperature 98.3 F 02/15/22 04:20 Pulse Rate 86 02/15/22 04:20 Respiratory Rate 18 02/15/22 06:15 Blood Pressure 132/78 02/15/22 04:20 Pulse Oximetry 96 02/15/22 06:15 Oxygen Delivery Me thod 02/15/22 04:20 MDM - Fever Medical Decision Making Lungs are clear. Swabs are negative. She is stable medically. since symptoms are ongoing for at least a week, will treat with abx. she knows she is to return for worsening symptoms. Lab Data Laboratory Results Influenza Type A Ag negative (Negative) 02/15/22 05:00 Influenza Type B Ag negative (Negative) 02/15/22 05:00 SARS-CoV-2 Ag (Rapid) negative (Negative) 02/15/22 05:00 Discharge Plan Discharge Patient Disposition: Home Clinical Impression: Sinusitis Condition: Stable Prescriptions: New azithromycin 250 mg tablet See Rx Instructions .ROUTE .COMPLEX Qty: 6 0RF Rx Instructions: For 250 mg dose pack: take 500 mg today (day 1), then 250 mg for 4 days (days 2-5) ketorolac 10 mg tablet 10 mg PO TID PRN (Reason: pain) Qty: 10 0RF No Action metronidazole 500 mg tablet 500 mg PO BID mupirocin 2 % ointment 1 applic topical BID fluticasone propionate [Flonase Allergy Relief] 50 mcg/actuation spray,suspension 1 spray intranasal DAILY Rx Instructions: administer into each nostril amoxicillin 500 mg capsule 500 mg PO BID Discharge Orders: Discharge ED (Routine); Ordered 02/15/22 Ordered By: Momo Richardson Patient Instructions: Sinusitis (ED), Opioid Safety, Pain Management Coding Level of Care Code ED Student Accounts Manager for Elkin Mendoza
== END 2022-02-15 06:17 | disposition home or self-care (01) ==
PROVIDERS: Emergency Provider Emergency Medicine
DX: J32.9 Chronic sinusitis, unspecified (principal); Z20.822 Contact with and (suspected) exposure to COVID-19; Z87.891 Personal history of nicotine dependence
CPT/HCPCS: 87426; 87804; Q0144

== ENCOUNTER 2022-03-11 16:52 | Outpatient (CLI) | payer MEDICAID, SELFPAY ==
--- NOTE | 2022-03-11 17:17 | XR_ITS ---
WS: [id number] RIGHT CLAVICLE 2 VIEWS HISTORY: PAIN OF RIGHT CLAVICLE COMPARISON: 04/08/2019 Clavicle is intact. No widening of the AC joint or elevation. Visualized upper lung field and adjacent soft tissues are normal. XR/[place] [id number] IMPRESSION: Normal RIGHT clavicle.
--- NOTE | 2022-03-11 17:17 | XR_ITS ---
WS: [id number] RIGHT KNEE: 3 VIEW(S) TECHNIQUE: AP, oblique(s) and lateral. HISTORY: PAIN IN JOINT OF RIGHT KNEE COMPARISON: None available. No fracture or dislocation. No joint space narrowing or osteophytes. No joint effusion. No soft tissue abnormality. XR/XR knee RT 3V* [id number] IMPRESSION: Normal RIGHT knee.
== END 2022-03-11 16:53 | disposition home or self-care (01) ==
PROVIDERS: Visit Provider Nurse Practitioner Family
DX: M25.561 Pain in right knee (principal); M89.8X1 Other specified disorders of bone, shoulder
CPT/HCPCS: 73000; 73562

== ENCOUNTER 2022-04-02 09:59 | Outpatient (CLI) | payer MEDICAID, SELFPAY ==
--- NOTE | 2022-04-02 10:08 | MM_ITS ---
WS: [id number] DIAGNOSTIC BILATERAL DIGITAL BREAST TOMOSYNTHESIS MAMMOGRAPHY WITH CAD Bilateral breast ultrasound, limited HISTORY: Bilateral breast masses. COMPARISON: None available. TECHNIQUE: Bilateral craniocaudad, mediolateral oblique, and mediolateral views are submitted with to mosynthesis and SM. Spot compression bilateral CC and MLO views. Computer aided detection utilized. Breast composition: The breasts are extremely dense, which lowers the sensitivity of mammography. Pal pable markers are placed along the upper-outer quadrant of each breast which correspond to the palpab le abnormalities. No underlying mass or distortion identified. Patient's dense tissue obscures the pa renchymal pattern. No calcifications. Bilateral breast ultrasound, limited. No solid masses or distortion identified in the areas of the palpable markers. There is a very small benign cyst RIGHT breast at 9:00, 2 cm from the nipple measuring 4 x 4 by 4 mm. Additional cyst LEFT breast at 12:00, 3 cm from the nipple measures 4 x 2 x 5 mm. MM/[place] [id number] IMPRESSION: BI-RADS: 2-Benign FOLLOW UP: Age 41 LACK OF RADIOGRAPHIC EVIDENCE OF MALIGNANCY SHOULD NOT DELAY BIOPSY IF A CLINIC ALLY SUSPICIOUS MASS IS PRESENT.
== END 2022-04-02 10:00 | disposition home or self-care (01) ==
LOC: RAD 10:03
PROVIDERS: Radiology Diagnostic Radiology; Visit Provider Nurse Practitioner Family
DX: N63.21 Unspecified lump in the left breast, upper outer quadrant (principal); N63.15 Unspecified lump in the right breast, overlapping quadrants
CPT/HCPCS: 76642; 77062; 81025; G0279

== ENCOUNTER 2022-05-02 18:18 | Emergency (ER) | payer MEDICAID, SELFPAY ==
[2022-05-02 18:22] VITALS: BP 119/78; PULSE 96; RESP 16; TEMP 37.1; O2SAT 99
[2022-05-02 18:37] VITALS: BP 101/72; PULSE 94; O2SAT 99
--- NOTE | 2022-05-02 18:40 | CTR_ITS ---
PROCEDURE INFORMATION: Exam: CT Abdomen And Pelvis With Contrast Exam date and time: 05/02/2022 6:47 PM Age: 36 years old Clinical indication: Abdominal pain; Generalized; Patient HX: Pelvic pressure; Additional info: Abd pain TECHNIQUE: Imaging protocol: Computed tomography of the abdomen and pelvis with contrast. Radiation optimization: All CT scans at this facility use at least one of these dose optimization techniques: automated exposure control; mA and/or kV adjustment per patient size (includes targeted exams where dose is matched to clinical indication); or iterative reconstruction. Contrast material: OMNI 350; Contrast volume: 100 ml; Contrast route: INTRAVENOUS (IV); REPORTING DATA: Count of CT and Cardiac NM exams in prior 12 months: This patient has received 0 known CTs and 0 known cardiac nuclear medicine studies in the 12 months prior to the current study. COMPARISON: US OB <= 14 weeks fetus [facility] 08/07/2020 3:32 PM RADIATION DOSE METRICS: Total DLP (mGy-cm): 401.73 FINDINGS: Liver: Hepatic steatosis. Gallbladder and bile ducts: Normal. No calcified stones. No ductal dilation. Pancreas: Normal. No ductal dilation. Spleen: Normal. No splenomegaly. Adrenal glands: Normal. No mass. Kidneys and ureters: Kidneys are mildly heterogeneous, please correlate for possible pyelonephritis. Stomach and bowel: Prominent fluid in the small bowel without dilation may reflect an enteritis. Constipation. Appendix: No evidence of appendicitis. Intraperitoneal space: Unremarkable. No free air. No significant fluid collection. Vasculature: Unremarkable. No abdominal aortic aneurysm. Lymph nodes: Unremarkable. No enlarged lymph nodes. Urinary bladder: Unremarkable as visualized. Reproductive: Fluid in the uterine cavity, likely related to menstrual status. Bones/joints: Unremarkable. No acute fracture. Soft tissues: Unremarkable. CT/CT abdomen pelvis w con* [id number] IMPRESSION: 1. Prominent fluid in the small bowel without dilation may reflect an enteritis. 2. Fluid in the uterine cavity, likely related to menstrual status. 3. Constipation. 4. Kidneys are mildly heterogeneous, please correlate for possible pyelonephritis. 5. Hepatic steatosis.
--- NOTE | 2022-05-02 18:41 | W.ED.ABDPA2 ---
HPI - Abdominal Pain General: Chief Complaint: Abdominal Pain Stated Complaint: fever, vaginal issues, abscess on mouth Time Seen by Provider: 05/02/22 18:28 Source: patient Mode of arrival: ambulatory Limitations: no limitations History of Present Illness: 36-year-old female states has been having some abdominal pain throughout the day along with some dysuria as well states pain is in her right lower quadrant sharp in nature rates it a 4 out of 10 she denies any worsening proving factors states she is also a small abscess to her left upper lip that is been draining over the last 3 to 4 days. Denies any fevers Associated Symptoms: Denies chills, dysuria and fever(s) Review of Systems Const: Denies: fever(s), chills, body aches or change in appetite Eyes: Denies: blurry vision or eye discomfort ENMT: Denies: throat pain or dental pain Card: Denies: chest pain Resp: Denies: dyspnea GI: Reports: abdominal pain : Denies: dysuria Musc: Denies: neck pain or back pain Skin/Breast: Denies: rash Neuro: Denies: headache(s) Psych: Denies: depression Shay/Lymph: Denies: easy bruising All/Imm: Denies: urticaria PFSH ED PFSH: Medical History Alcohol abuse Chronic use since 2014--she stopped all use of alcohol 06/30/2020 Drug use No pertinent past medical history neghx: htn,dm,thyroid,dvt/pe PCP: None Surgical History No pertinent past surgical history Family History Denies family history of Colon cancer Ovarian cancer Diabetes Heart disease Hypercholesteremia Breast cancer Hypertension Uterine cancer Thyroid disease Stroke Social History Smoking and tobacco status: former smoker Alcohol intake: current Physical Exam Const: COMMON NORMALS: no acute distress, patient oriented x3 and healthy appearing HENMT: COMMON NORMALS: normocephalic and atraumatic HEAD & SCALP: normocephalic and atraumatic OTHER: 1cm open abscess to left upper lip Eye: COMMON NORMALS: Equal, round and reactive pupils present and EOMs intact bilaterally PUPIL: Yes Equal, round and reactive pupils present Neck/C-Spine: COMMON NORMALS: full ROM and supple Chest: COMMONS NORMALS: normal inspection of the chest and normal palpation of entire chest wall Resp: COMMON NORMALS: normal respiratory effort, No retractions, No use of accessory muscles and clear to auscultation bilaterally AUSCULTATION: clear to auscultation bilaterally Cardio: COMMON NORMALS: regular rate, regular rhythm and No murmurs present (Cardio) RATE: regular rate RHYTHM: regular rhythm GI: COMMON NORMALS: Soft to palpation and no masses PALPATION: Yes Soft to palpation and Yes Tenderness to palpation present (GI) Details: RLQ : COMMON NORMALS: Yes no CVA tenderness BLADDER/KIDNEY EXAM: Yes no CVA tenderness OTHER: Moderate amount of discharge on vaginal exam no cervical motion tenderness Back/Pelvis: COMMON NORMALS: no CVA tenderness Extremity: COMMON NORMALS: normal to inspection and full ROM Neuro: COMMON NORMALS: patient oriented x3, moves all extremities and no focal motor deficits Psych: COMMON NORMALS: mental status grossly normal, Normal thought process present and cooperative THOUGHT PROCESS: Normal thought process present Skin: COMMON NORMALS: no rashes or lesions noted and no wounds GENERAL SKIN EXAM: no rashes or lesions noted Course Vital Signs: Vital signs: Vital Signs Temperature 98.8 F 05/02/22 18:22 Pulse Rate 76 05/02/22 20:03 Respiratory Rate 16 05/02/22 20:03 Blood Pressure 123/79 05/02/22 20:03 Pulse Oximetry 96 05/02/22 20:03 Oxygen Delivery Me thod 05/02/22 20:03 MDM - Abdominal Pain Medical Decision Making Patient presents here with abdominal pain CT scan and white count is normal she does have a lot of discharge on her exam likely an STD patient given Rocephin along with doxycycline no cervical motion tenderness she has a small abscess to her face that is already draining she is to follow-up with PCP and return if worsening. Lab Data 05/02/22 18:55 05/02/22 18:55 Labs/Radiology: Radiology Impressions Abdomen/Pelvis CT 05/02/22 18:40 IMPRESSION: 1. Prominent fluid in the small bowel without dilation may reflect an enteritis. 2. Fluid in the uterine cavity, likely related to menstrual status. 3. Constipation. 4. Kidneys are mildly heterogeneous, please correlate for possible pyelonephritis. 5. Hepatic steatosis. Laboratory Results WBC 9.1 10^3/uL (4.0-10.0) 05/02/22 18:55 RBC 4.47 10^6/uL (4.1-5.3) 05/02/22 18:55 Hgb 13.7 g/dL (11.5-15.3) 05/02/22 18:55 Hct 41.4 % (37.0-47.0) 05/02/22 18:55 MCV 92.6 fl (81-99) 05/02/22 18:55 MCH 30.6 pg (28.0-34.0) 05/02/22 18:55 MCHC 33.1 g/dL (30.0-36.0) 05/02/22 18:55 RDW 12.8 % (12.1-15.1) 05/02/22 18:55 Plt Count 256 10^3/cmm (130-400) 05/02/22 18:55 MPV 9.8 fL (7.4-10.4) 05/02/22 18:55 Neut % (Auto) 87.8 % 05/02/22 18:55 Lymph % (Auto) 8.1 % 05/02/22 18:55 [place] % (Auto) 2.7 % 05/02/22 18:55 Eos % (Auto) 1.2 % 05/02/22 18:55 Baso % (Auto) 0.1 % 05/02/22 18:55 Neut # (Auto) 8.02 10^3/uL (1.8-7.7) H 05/02/22 18:55 Lymph # (Auto) 0.7 10^3/uL (0.8-4.8) L 05/02/22 18:55 [place] # (Auto) 0.3 10^3/uL (0.2-0.9) 05/02/22 18:55 Eos # (Auto) 0.1 10^3/uL (0.0-0.8) 05/02/22 18:55 Baso # (Auto) 0.0 10^3/uL (0.0-0.1) 05/02/22 18:55 Nucleated RBC % (auto) 0 % 05/02/22 18:55 Nucleated RBCs # 0.0 /100WBC 05/02/22 18:55 Sodium 134 mmol/L (136-145) L 05/02/22 18:55 Potassium 3.4 mmol/L (3.5-5.1) L 05/02/22 18:55 Chloride 96 mmol/L (98-107) L 05/02/22 18:55 Carbon Dioxide 25 mmol/L (22-29) 05/02/22 18:55 Anion Gap 16.4 (5-19) 05/02/22 18:55 BUN 13 mg/dL (6-20) 05/02/22 18:55 Creatinine 0.6 mg/dL (0.5-0.9) 05/02/22 18:55 GFR Calculation 113.8 mL/min (90-130) 05/02/22 18:55 Glucose 89 mg/dL (65-115) 05/02/22 18:55 Calculated Osmolality 278 mOsm/kg (285-295) L 05/02/22 18:55 Calcium 9.4 mg/dL (8.5-10.5) 05/02/22 18:55 Total Bilirubin 0.2 mg/dL (0.15-1.2) 05/02/22 18:55 AST 15 U/L (0-32) 05/02/22 18:55 ALT 12 U/L (0-33) 05/02/22 18:55 Alkaline Phosphatase 59 U/L (35-105) 05/02/22 18:55 Total Protein 7.2 g/dL (6.6-8.7) 05/02/22 18:55 Albumin 4.0 g/dL (3.5-5.2) 05/02/22 18:55 Globulin 3.2 g/dL (1.3-4.6) 05/02/22 18:55 Lipase 45 U/L (13-60) 05/02/22 18:55 HCG, Qual Negative (Negative) 05/02/22 18:55 Urine Color Yellow (Yellow) 05/02/22 20:00 Urine Appearance Clear (CLEAR) 05/02/22 20:00 Urine pH 6 (5-7) 05/02/22 20:00 Ur Specific [place] 1.015 (1.005-1.030) 05/02/22 20:00 Urine Protein Neg (Negative) 05/02/22 20:00 Urine Glucose (UA) Norm (Normal) 05/02/22 20:00 Urine Ketones Negative (Negative) 05/02/22 20:00 Urine Blood Neg (Negative) 05/02/22 20:00 Urine Nitrate Negative (Negative) 05/02/22 20:00 Urine Bilirubin Neg (Negative) 05/02/22 20:00 Urine Urobilinogen Neg mg/dL (Negative) 05/02/22 20:00 Ur Leukocyte Esterase 2+ (Negative) H 05/02/22 20:00 Urine RBC 0-4 /hpf (0-2) H 05/02/22 20:00 Urine WBC 0-4 /hpf (0-5) H 05/02/22 20:00 Ur Squamous Epith Cells 0-4 /hpf (0-5) H 05/02/22 20:00 Amorphous Sediment Not Reportable 05/02/22 20:00 Urine Bacteria Trace /hpf (NONE) 05/02/22 20:00 Urine Mucus Trace /hpf 05/02/22 20:00 Discharge Plan Discharge Patient Disposition: Home Clinical Impression: Vaginal discharge, Abdominal pain Condition: Stable Prescriptions: New hydrocodone-acetaminophen 5-325 mg tablet 1 tab PO Q6H PRN (Reason: pain) Qty: 14 0RF ondansetron 4 mg tablet,disintegrating 4 mg PO Q6H PRN (Reason: nausea and vomiting) Qty: 14 0RF doxycycline hyclate 100 mg capsule 100 mg PO BID 7 Days Qty: 14 0RF No Action metronidazole 500 mg tablet 500 mg PO BID mupirocin 2 % ointment 1 applic topical BID fluticasone propionate [Flonase Allergy Relief] 50 mcg/actuation spray,suspension 1 spray intranasal DAILY Rx Instructions: administer into each nostril amoxicillin 500 mg capsule 500 mg PO BID azithromycin 250 mg tablet See Rx Instructions .ROUTE .COMPLEX Qty: 6 0RF Rx Instructions: For 250 mg dose pack: take 500 mg today (day 1), then 250 mg for 4 days (days 2-5) ketorolac 10 mg tablet 10 mg PO TID PRN (Reason: pain) Qty: 10 0RF Discharge Orders: Discharge ED (Routine); Ordered 03/12/23 Ordered By: Crissy Banda Discharge Diet: Advance as tolerated Discharge Activity: Resume usual activity Patient Instructions: Abdominal Pain (ED), Vaginal Discharge (ED), Opioid Safety Coding Level of Care Code ED 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
[2022-05-02] MEDS: iohexol 350 mg/mL 500 mL Btl (per mL) IV (19:00)
[2022-05-02 19:03] LABS: Basophils % 0.1 %; Eosinophils # 0.1 10^3/uL (0.0-0.8); Eosinophils % 1.2 %; Hematocrit 41.4 % (37.0-47.0); Hemoglobin 13.7 g/dL (11.5-15.3); Lymphocytes # 0.7 10^3/uL (0.8-4.8); Lymphocytes % 8.1 %; Mean Corpuscular HGB Conc 33.1 g/dL (30.0-36.0); Mean Corpuscular Hemoglobin 30.6 pg (28.0-34.0); Mean Corpuscular Volume 92.6 fl (81-99); Mean Platelet Volume 9.8 fL (7.4-10.4); Monocytes # 0.3 10^3/uL (0.2-0.9); Monocytes % 2.7 %; Neutrophils # 8.02 10^3/uL (1.8-7.7); Neutrophils % 87.8 %; Nucleated Red Blood Cells % 0 %; Platelet Count 256 10^3/cmm (130-400); Red Blood Count 4.47 10^6/uL (4.1-5.3); Red Cell Distribution Width 12.8 % (12.1-15.1); White Blood Count 9.1 10^3/uL (4.0-10.0)
[2022-05-02] MEDS: acetaminophen 325 mg Tablet 650 MG PO (19:05)
[2022-05-02] MEDS: ondansetron 2 mg/ML SDV 2 mL 4 MG IVP (19:06)
[2022-05-02] MEDS: sodium chloride 0.9% 1,000 ML 999 ML IV (19:06)
[2022-05-02 19:24] LABS: Alanine Aminotransferase 12 U/L (0-33); Alkaline Phosphatase 59 U/L (35-105); Anion Gap 16.4 (5-19); Aspartate Amino Transferase 15 U/L (0-32); Blood Urea Nitrogen 13 mg/dL (6-20); Calcium 9.4 mg/dL (8.5-10.5); Carbon Dioxide 25 mmol/L (22-29); Chloride 96 mmol/L (98-107); Globulin 3.2 g/dL (1.3-4.6); Glomerular Filtration Rate 113.8 mL/min (90-130); Glucose 89 mg/dL (65-115); Lipase 45 U/L (13-60); Osmolality Calculated 278 mOsm/kg (285-295); Potassium 3.4 mmol/L (3.5-5.1); Sodium 134 mmol/L (136-145); Total Bilirubin 0.2 mg/dL (0.15-1.2); Total Protein 7.2 g/dL (6.6-8.7)
[2022-05-02] MEDS: morphine 4 mg/mL SDV 1 mL IVP (19:24)
[2022-05-02 19:37] LABS: HCG, Serum Qual Negative (Negative)
[2022-05-02 20:03] VITALS: BP 123/79; PULSE 76; RESP 16; O2SAT 96
[2022-05-02 20:56] LABS: Add Urine Microscopic? YES; Bilirubin Urine Neg (Negative); Blood Urine Neg (Negative); Glucose Urine UA Norm (Normal); Ketones Urine Negative (Negative); Leukocyte Esterase Urine 2+ (Negative); Nitrate Urine Negative (Negative); Protein Urine Neg (Negative); Specific Gravity, Urine 1.015 (1.005-1.030); Urine Appearance Clear (CLEAR); Urine Color Yellow (Yellow); Urobilinogen Urine Neg (Negative); pH Urine 6 (5-7)
[2022-05-02 20:57] LABS: RBC Urine 0-4 /hpf (0-2); Squamous Epithelial Cell Urine 0-4 /hpf (0-5); WBC Urine 0-4 /hpf (0-5)
[2022-05-02 20:58] LABS: Add Urine Culture? No; Bacteria Urine TRACE /hpf; Mucus Urine TRACE /hpf
[2022-05-02 21:30] VITALS: BP 103/63; PULSE 81; O2SAT 90
[2022-05-02] MEDS: cefTRIAXone 1,000 MG in sodium chloride 0.9% (plus) 50 ML 100 MG IV (21:34)
[2022-05-02] MEDS: HYDROcodone-acetaminophen 5-325 mg Tablet 1 TAB PO (21:53)
[2022-05-02] MEDS: neomycin-poly-bacitracin oint 28 gm 1 APPLIC TOPICAL (22:32)
--- NOTE | 2022-05-04 16:18 | DCPLANNER ---
Addendum entered by Kathy Lagunas 05/05/22 12:45: manager engine called patient due to no primary care physician - patient states that she sees Dr. Narayanan in [place] Original Note: TCM called patient due to no primary care physician - no answer at this time
== END 2022-05-02 22:35 | disposition home or self-care (01) ==
PROVIDERS: Emergency Provider Emergency Medicine
DX: N89.8 Other specified noninflammatory disorders of vagina (principal); R10.31 Right lower quadrant pain; K59.00 Constipation, unspecified; K76.0 Fatty (change of) liver, not elsewhere classified; Z87.891 Personal history of nicotine dependence
CPT/HCPCS: 74177; 80053; 81001; 83690; 84703; 85025; 87210; 87491; 87591; 96365; 96375; 99285; J0696; J2270; J2405; J7030; Q9967

== ENCOUNTER 2022-05-08 22:38 | Emergency (ER) | payer MEDICAID, SELFPAY ==
[2022-05-08 22:45] VITALS: BP 136/88; PULSE 79; RESP 22; TEMP 36.8; O2SAT 99; BMI 24.0
--- NOTE | 2022-05-08 22:55 | W.ED.GENADLT ---
HPI - General Adult General: Chief complaint: General Medical Stated complaint: lip swelling and bilateral feet swelling Time Seen by Provider: 05/08/22 22:55 History of Present Illness: 36-year-old female comes in today for complaints of increased redness to the soles of her feet and tenderness along with increased redness of her psoriatic patches. Patient recently was started on doxycycline and cephalexin for a skin infection. Patient appears nontoxic. Patient appears in no acute distress. Associated symptoms: Reports rash; Deny chest pain Review of Systems General: Reports: 10 or more systems reviewed and unremarkable except in HPI and below ENMT: Reports: other (Chapped lips) Card: Denies: chest pain Musc: Reports: extremity pain Skin/Breast: Reports: rash and erythema PFS ED PFSH: Medical History Alcohol abuse Chronic use since 2014--she stopped all use of alcohol 06/30/2020 Drug use No pertinent past medical history neghx: htn,dm,thyroid,dvt/pe PCP: None Surgical History No pertinent past surgical history Family History Denies family history of Colon cancer Ovarian cancer Diabetes Heart disease Hypercholesteremia Breast cancer Hypertension Uterine cancer Thyroid disease Stroke Social History Smoking and tobacco status: former smoker Alcohol intake: current Physical Exam Const: COMMON NORMALS: alert HENMT: COMMON NORMALS: normocephalic HEAD & SCALP: normocephalic MOUTH: other (Chafed lips) Neck/C-Spine: COMMON NORMALS: full ROM Resp: COMMON NORMALS: normal respiratory effort and clear to auscultation bilaterally AUSCULTATION: clear to auscultation bilaterally Cardio: COMMON NORMALS: regular rate and regular rhythm RATE: regular rate RHYTHM: regular rhythm : COMMON NORMALS: Yes no CVA tenderness BLADDER/KIDNEY EXAM: Yes no CVA tenderness Back/Pelvis: COMMON NORMALS: no CVA tenderness Extremity: COMMON NORMALS: normal to inspection Neuro: SENSORIUM/ORIENTATION: Yes alert Skin: RASHES: other (Increase psoriatic patches to the torso, increased redness to the feet) Course Vital Signs: Vital signs: Vital Signs Temperature 98.3 F 05/08/22 22:45 Pulse Rate 79 05/08/22 22:45 Respiratory Rate 22 H 05/08/22 22:45 Blood Pressure 136/88 05/08/22 22:45 Pulse Oximetry 99 05/08/22 22:45 Oxygen Delivery Me thod 05/08/22 22:45 MDM - General Adult Medical Decision Making 36-year-old female comes in today with complaints of increase in redness to her psoriatic patches, and increasing rash to the feet and torso. Patient also reports some chapped lips. On exam no significant swelling is noted to the lips. Posterior pharynx is open airway is intact. Lungs are clear to auscultation. Patient does have some increasing patches of psoriasis to her torso and increased erythema to the patches of psoriasis to bilateral elbows. Patient also has significant redness to the soles of the feet. Differential diagnosis includes contact dermatitis, psoriatic flare, adverse drug reaction, allergic reaction. Believe the patient has a psoriatic flare secondary to doxycycline use. I was able to find reference where tetracycline has been the culprit in prior psoriatic flares. Recommended cessation of the doxycycline. Instructed patient to use triamcinolone cream 3 times a day to her rashes. Prescribed hydroxyzine for itching and redness. Recommended lots of fluids. Follow-up with primary care For consideration of oral treatment for psoriasis if rash continues to flare. Patient reported understanding agreed to plan. Discharge Plan Discharge Patient Disposition: Home Clinical Impression: Psoriasis Adverse drug reaction Qualifiers: Encounter type: initial encounter Qualified Code(s): T50.905A - Adverse effect of unspecified drugs, medicaments and biological substances, initial encounter Condition: Stable Prescriptions: New hydroxyzine HCl 25 mg tablet 25 mg PO Q6H PRN (Reason: itching, rash) Qty: 20 0RF triamcinolone acetonide 0.1 % cream 1 applic topical TID Qty: 80 0RF Continued hydrocodone-acetaminophen 5-325 mg tablet 1 tab PO Q6H PRN (Reason: pain) Qty: 12 0RF Discontinued doxycycline hyclate 100 mg capsule 100 mg PO BID 7 Days Qty: 14 0RF No Action metronidazole 500 mg tablet 500 mg PO BID mupirocin 2 % ointment 1 applic topical BID fluticasone propionate [Flonase Allergy Relief] 50 mcg/actuation spray,suspension 1 spray intranasal DAILY Rx Instructions: administer into each nostril amoxicillin 500 mg capsule 500 mg PO BID azithromycin 250 mg tablet See Rx Instructions .ROUTE .COMPLEX Qty: 6 0RF Rx Instructions: For 250 mg dose pack: take 500 mg today (day 1), then 250 mg for 4 days (days 2-5) ketorolac 10 mg tablet 10 mg PO TID PRN (Reason: pain) Qty: 10 0RF ondansetron 4 mg tablet,disintegrating 4 mg PO Q6H PRN (Reason: nausea and vomiting) Qty: 14 0RF Discharge Orders: Discharge ED (Routine); Ordered 05/08/22 Ordered By: Darren Pierson Discharge Diet: Usual diet Discharge Activity: Increase activity as tolerated Patient Instructions: Psoriasis (ED), Opioid Safety Activity Restrictions/Additional Instructions: Stop doxycycline as this has caused an adverse reaction with your history of psoriasis. Drink plenty of water. Use hydroxyzine for rash and itching. Use hydrocodone for your foot pain. Increase triamcinolone cream to 3 times a day to your rash until return to normal. Use a good emollient to your lips. Follow-up with primary care in 3 days for recheck and consideration of other treatment for psoriasis. Return to ER for new concerns. Coding Level of Care Code ED Director Of Adult Epilepsy for Elkin Mendoza
[2022-05-08] MEDS: HYDROcodone-acetaminophen 5-325 mg Tablet 1 TAB PO (23:11)
[2022-05-08] MEDS: diphenhydrAMINE 50 mg/mL SDV 1mL IM (23:12)
--- NOTE | 2022-05-11 15:15 | DCPLANNER ---
wildlife manager called patient due to no primary care physician - patient states that she sees Dr. Narayanan in [place]
== END 2022-05-08 23:28 | disposition home or self-care (01) ==
PROVIDERS: Emergency Provider Nurse Practitioner Family; PCP Nurse Practitioner Family
DX: L40.9 Psoriasis, unspecified (principal); T36.4X5A Adverse effect of tetracyclines, initial encounter; Z87.891 Personal history of nicotine dependence
CPT/HCPCS: 96372; 99284; J1200

== ENCOUNTER 2022-05-09 19:36 | Emergency (ER) | payer MEDICAID, SELFPAY ==
[2022-05-09] VITALS (7 sets, daily range): BP systolic 102–119; BP diastolic 68–96; PULSE 81–117; RESP 16–18; TEMP 36.3–36.7; O2SAT 91–100; BMI 24.9
--- NOTE | 2022-05-09 20:05 | ED_ITS ---
HPI - Skin/Abscess/Foreign Bdy General: Chief complaint: Skin/Abscess/Foreign Body Stated complaint: rash all over Time Seen by Provider: 05/09/22 20:05 History of Present Illness: Ms. Tang is a 36-year-old lady with history of psoriasis presenting to the emergency department due to concern over continued worsening of rash and throat tightness. She reports symptoms started approxi mately 2 weeks ago initially with a bump on her lip. She was seen and prescribed topical antibiotics however worsened. She subsequently was seen in the ER for abdominal pain with vaginal discharge and initiated on doxycycline. Her abdominal pain is improved however she has now developed rash over her body. She was seen last night and treated for suspected flare of psoriasis. She was prescribed topical medications which she has not picked up. She has been taking Benadryl but feels now that she has difficulty swallowing for 4 days and throat tightness. Intensity symptoms overall is moderate to severe. She is primarily uncomfortable due to pain in the lower extremities and feet. No other specific changes in health, exacerbating, or alleviating factors identified. Onset (ago): week(s) Location: generalized Severity: moderate Quality: burning Pain Consistency: constant Context: new medication Review of Systems General: Reports: 10 or more systems reviewed and unremarkable except in HPI and below PFSH ED PFSH: Medical History Alcohol abuse Chronic use since 2014--she stopped all use of alcohol 06/30/2020 Drug use No pertinent past medical history neghx: htn,dm,thyroid,dvt/pe PCP: None Surgical History No pertinent past surgical history Family History Denies family history of Colon cancer Ovarian cancer Diabetes Heart disease Hypercholesteremia Breast cancer Hypertension Uterine cancer Thyroid disease Stroke Social History Smoking and tobacco status: former smoker Alcohol intake: current Physical Exam Const: COMMON NORMALS: alert GENERAL APPEARANCE: cooperative and well de veloped HENMT: COMMON NORMALS: normocephalic and atraumatic HEAD & SCALP: normocephalic and atraumatic OTHER: Mild upper and lower bilateral lip swelling/fullness, lips appear chapped. Mild posterior erythema without exudates, uvula is midline and appears normal in size, there is no evidence of airway distortion or indication of deep tissue infection. Eye: COMMON NORMALS: conjunctivae normal CONJUNCTIVA: Yes conjunctivae normal SCLERA: sclerae normal Neck/C-Spine: COMMON NORMALS: supple GENERAL: Yes trachea midline Resp: COMMON NORMALS: clear to auscultation bilaterally EFFORT & INSPECTION: Yes able to speak in complete sentences AUSCULTATION: clear to auscultation bilaterally Cardio: COMMON NORMALS: regular rate and regular rhythm RATE: regular rate RHYTHM: regular rhythm GI: COMMON NORMALS: Soft to palpation PALPATION: Yes Soft to palpation and No Tenderness to palpation present (GI) Extremity: NARRATIVE EXTREMITY EXAM: Bilateral foot pain and edema. CMS intact. No open wounds. No evidence of DV T. Appears more inflammatory in nature. GENERAL: Yes normal exam except as noted and No edema Neuro: COMMON NORMALS: moves all extremities SENSORIUM/ORIENTATION: Yes alert and No Orientation impaired Psych: COMMON NORMALS: mental status grossly normal and Normal thought process present THOUGHT PROCESS: Normal thought process present OTHER: Affect is quite odd Skin: NARRATIVE SKIN EXAM: Significant posterior bilateral elbow psoriasis plaques, there are scattered plaque-like lesions on the back and bilateral legs, there is erythema on bilateral feet however in addition to some swelling on the plantar surface. No desquamating or vesicular lesions observed. Course Vital Signs: Vital signs: Vital Signs Temperature 98.1 F 05/09/22 20:58 Pulse Rate 99 05/09/22 23:52 Respiratory Rate 16 05/09/22 23:52 Blood Pressure 115/77 05/09/22 23:52 Pulse Oximetry 100 05/09/22 23:52 Oxygen Delivery Me thod 05/09/22 23:47 MDM - Skin/Abscess/Foreign Bdy Medicial Decision Making 36-year-old lady presenting again to the ER for concern over worsening symptoms with possible history of allergic reaction versus psoriasis flare. Patient is nontoxic in appearance and there is no evidence of airway compromise. No evidence of significant oropharyngeal swelling. Labs with no significant hematologic or metabolic abnormality. No UTI given squamous epithelial contamination and absence of symptoms. UDS is positive for opioids, amphetamines, THC. Prior imaging reviewed. Patient treated with Benadryl, Pepcid, fluids, analgesia, steroids with some improvement. I did discuss prior to administration risk of steroid-induced worsening of psoriasis however patient feels strongly that her symptoms are not related to her psoriasis. Most likely etiology of patient's symptoms is unclear, possible allergic reaction versus other. Given failure of more conservative measures we will plan to treat in the outpatient setting with oral steroids, Pepcid, Benadryl as needed. Also prescribed analgesia for bilateral foot swelling/pain. There is no evidence of open wounds on exam and no evidence of infection. Given patient's overall clinical appearance and recurrent visits patient was asked about safety and she feels safe in her current situation. The results of ED evaluation were discussed with the patient including prescriptions and/or symptomatic cares (if applicable) including appropriate and responsible use, followup plan, and return precautions. The patient verbalized understanding and felt safe for discharge. Medical Records I reviewed the patient's medical records. Lab Data I reviewed the patient's lab results. 05/09/22 21:12 05/09/22 21:12 Laboratory Results WBC 6.6 10^3/uL (4.0-10.0) 05/09/22 21:12 RBC 4.61 10^6/uL (4.1-5.3) 05/09/22 21:12 Hgb 14.0 g/dL (11.5-15.3) 05/09/22 21:12 Hct 42.2 % (37.0-47.0) 05/09/22 21:12 MCV 91.5 fl (81-99) 05/09/22 21:12 MCH 30.4 pg (28.0-34.0) 05/09/22 21:12 MCHC 33.2 g/dL (30.0-36.0) 05/09/22 21:12 RDW 12.5 % (12.1-15.1) 05/09/22 21:12 Plt Count 368 10^3/cmm (130-400) 05/09/22 21:12 MPV 9.1 fL (7.4-10.4) 05/09/22 21:12 Neut % (Auto) 64.5 % 05/09/22 21:12 Lymph % (Auto) 21.8 % 05/09/22 21:12 [place] % (Auto) 7.2 % 05/09/22 21:12 Eos % (Auto) 5.2 % 05/09/22 21:12 Baso % (Auto) 0.8 % 05/09/22 21:12 Neut # (Auto) 4.24 10^3/uL (1.8-7.7) 05/09/22 21:12 Lymph # (Auto) 1.4 10^3/uL (0.8-4.8) 05/09/22 21:12 [place] # (Auto) 0.5 10^3/uL (0.2-0.9) 05/09/22 21:12 Eos # (Auto) 0.3 10^3/uL (0.0-0.8) 05/09/22 21:12 Baso # (Auto) 0.1 10^3/uL (0.0-0.1) 05/09/22 21:12 Nucleated RBC % (auto) 0 % 05/09/22 21:12 Nucleated RBCs # 0.0 /100WBC 05/09/22 21:12 Sodium 141 mmol/L (136-145) 05/09/22 21:12 Potassium 3.9 mmol/L (3.5-5.1) 05/09/22 21:12 Chloride 103 mmol/L (98-107) 05/09/22 21:12 Carbon Dioxide 29 mmol/L (22-29) 05/09/22 21:12 Anion Gap 12.9 (5-19) 05/09/22 21:12 BUN 12 mg/dL (6-20) 05/09/22 21:12 Creatinine 0.6 mg/dL (0.5-0.9) 05/09/22 21:12 GFR Calculation 113.8 mL/min (90-130) 05/09/22 21:12 Glucose 107 mg/dL (65-115) 05/09/22 21:12 Calculated Osmolality 292 mOsm/kg (285-295) 05/09/22 21:12 Lactate 1.4 mmol/L (0.5-2.2) 05/09/22 21:12 Calcium 9.2 mg/dL (8.5-10.5) 05/09/22 21:12 Total Bilirubin 0.2 mg/dL (0.15-1.2) 05/09/22 21:12 AST 21 U/L (0-32) 03/19/23 21:12 ALT 13 U/L (0-33) 05/09/22 21:12 Alkaline Phosphatase 62 U/L (35-105) 05/09/22 21:12 C-Reactive Protein 4.3 mg/L (0.0-4.9) 05/09/22 21:12 Total Protein 6.7 g/dL (6.6-8.7) 05/09/22 21:12 Albumin 4.0 g/dL (3.5-5.2) 05/09/22 21:12 Globulin 2.7 g/dL (1.3-4.6) 05/09/22 21:12 Procalcitonin 0.04 ng/mL (0-0.5) 05/09/22 21:12 Urine Color Yellow (Yellow) 05/09/22 21:37 Urine Appearance Clear (CLEAR) 05/09/22 21:37 Urine pH 6.5 (5-7) 05/09/22 21:37 Ur Specific [place] 1.015 (1.005-1.030) 05/09/22 21:37 Urine Protein Neg (Negative) 05/09/22 21:37 Urine Glucose (UA) Norm (Normal) 05/09/22 21:37 Urine Ketones Negative (Negative) 05/09/22 21:37 Urine Blood Neg (Negative) 05/09/22 21:37 Urine Nitrate Negative (Negative) 05/09/22 21:37 Urine Bilirubin Neg (Negative) 05/09/22 21:37 Urine Urobilinogen Norm mg/dL (Negative) 05/09/22 21:37 Ur Leukocyte Esterase 2+ (Negative) H 05/09/22 21:37 Urine RBC 0-4 /hpf (0-2) H 05/09/22 21:37 Urine WBC 5-10 /hpf (0-5) H 05/09/22 21:37 Ur Squamous Epith Cells 5-10 /hpf (0-5) H 05/09/22 21:37 Amorphous Sediment Not Reportable 05/09/22 21:37 Urine Bacteria Trace /hpf (NONE) 05/09/22 21:37 Urine Mucus 1+ /hpf 05/09/22 21:37 Urine Opiates Screen Positive ng/mL (Negative) H 05/09/22 21:37 Ur Barbiturates Screen Negative ng/mL (Negative) 05/09/22 21:37 Ur Phencyclidine Scrn Negative ng/mL (Negative) 05/09/22 21:37 Ur Amphetamines Screen Positive ng/mL (Negative) H 05/09/22 21:37 U Benzodiazepines Scrn Negative ng/mL (Negative) 05/09/22 21:37 Urine Cocaine Screen Negative ng/mL (Negative) 05/09/22 21:37 U Marijuana (THC) Screen Positive ng/mL (Negative) H 05/09/22 21:37 Coronavirus 229E (PCR) Not detected (NOT DETECT) 05/09/22 Unknown SARS-CoV-2 (PCR) Not detected (NOT DETECT) 05/09/22 Unknown Group A Strep Rapid Negative (Negative) 05/09/22 Unknown Discharge Plan Discharge Patient Disposition: Home Clinical Impression: Urticaria, Psoriasis, Drug use Condition: Stable Prescriptions: New oxycodone 5 mg tablet 5 mg PO Q4H PRN (Reason: pain) Qty: 10 0RF No Action metronidazole 500 mg tablet 500 mg PO BID mupirocin 2 % ointment 1 applic topical BID fluticasone propionate [Flonase Allergy Relief] 50 mcg/actuation spray,suspe nsion 1 spray intranasal DAILY Rx Instructions: administer into each nostril amoxicillin 500 mg capsule 500 mg PO BID azithromycin 250 mg tablet See Rx Instructions .ROUTE .COMPLEX Qty: 6 0RF Rx Instructions: For 250 mg dose pack: take 500 mg today (day 1), then 250 mg for 4 days (days 2-5) ketorolac 10 mg tablet 10 mg PO TID PRN (Reason: pain) Qty: 10 0RF ondansetron 4 mg tablet,disintegrating 4 mg PO Q6H PRN (Reason: nausea and vomiting) Qty: 14 0RF hydroxyzine HCl 25 mg tablet 25 mg PO Q6H PRN (Reason: itching, rash) Qty: 20 0RF hydrocodone-acetaminophen 5-325 mg tablet 1 tab PO Q6H PRN (Reason: pain) Qty: 12 0RF triamcinolone acetonide 0.1 % cream 1 applic topical TID Qty: 80 0RF Discharge Orders: Discharge ED (Routine); Ordered 05/09/22 Ordered By: Ismael Alberts Discharge Diet: Usual diet Discharge Activity: Increase activity as tolerated Patient Instructions: Allergic Reaction, Urticaria (ED), Psoriasis (ED), Opioid Safety Activity Restrictions/Additional Instructions: Thank you for visiting the emergency department. You were seen and evaluated for continued swelling and associated symptoms. The exact cause your symptoms is unclear though may be a combination of allergic reaction and psoriasis. We are pleased that you had improvement in the emergency department. As discussed there is risk of steroid-induced worsening of your psoriasis. I will prescribe a course of steroids as well as Pepcid. You may take Benadryl as directed on the packaging in addition to this for continued symptoms. Please also continue your prescribed topical cream. You may use [id number] medications such as acetaminophen and ibuprofen for pain however please do not exceed the daily recommended dosage as listed on the packaging and please keep in mind that many namebrand medications contain the same active ingredients. Please avoid these medications if previously instructed to do so by another physician due to other underlying medical condition. Please switch to gentle fragrance free soaps and detergents. Please check your environment for any new possible exposures. Please follow-up with your primary care provider. Return to the emergency department for uncontrolled symptoms, rashes that peel or blister, any blisters or lesions inside the mouth or another mucous membrane such as genitals, or anything else that you are concerned about and feel needs emergency department evaluation. Coding Level of Care Code ED [employer] Tender for Elkin Mendoza
--- NOTE | 2022-05-09 20:27 | PC.NURSE ---
Pt presents to ED c/o painful rash all over body. Pt stated that symptoms began 10 days ago after taking doxycycline for lip swelling and redness. Petechiae noted all over hands, forearms, lower legs, feet, and lower back. Swelling and redness noted in both feet and lower legs as well as the lips. Pt states that she has a sore throat and difficulty swallowing. Denies sickness in the home, but does have small children. Pt resting in bed.
[2022-05-09] MEDS: famotidine 20 mg/2 mL INJ 40 MG IVP (20:56)
[2022-05-09] MEDS: diphenhydrAMINE 50 mg/mL SDV 1mL IVP (20:56)
[2022-05-09] MEDS: sodium chloride 0.9% 1,000 ML 999 ML IV (20:57)
[2022-05-09 21:34] LABS: Basophils # 0.1 10^3/uL (0.0-0.1); Basophils % 0.8 %; Eosinophils # 0.3 10^3/uL (0.0-0.8); Eosinophils % 5.2 %; Hematocrit 42.2 % (37.0-47.0); Lymphocytes # 1.4 10^3/uL (0.8-4.8); Lymphocytes % 21.8 %; Mean Corpuscular HGB Conc 33.2 g/dL (30.0-36.0); Mean Corpuscular Hemoglobin 30.4 pg (28.0-34.0); Mean Corpuscular Volume 91.5 fl (81-99); Mean Platelet Volume 9.1 fL (7.4-10.4); Monocytes # 0.5 10^3/uL (0.2-0.9); Monocytes % 7.2 %; Neutrophils # 4.24 10^3/uL (1.8-7.7); Neutrophils % 64.5 %; Nucleated Red Blood Cells % 0 %; Platelet Count 368 10^3/cmm (130-400); Red Blood Count 4.61 10^6/uL (4.1-5.3); Red Cell Distribution Width 12.5 % (12.1-15.1); White Blood Count 6.6 10^3/uL (4.0-10.0)
[2022-05-09] MEDS: morphine 4 mg/mL SDV 1 mL IVP (21:44)
[2022-05-09 21:58] LABS: Alanine Aminotransferase 13 U/L (0-33); Alkaline Phosphatase 62 U/L (35-105); Anion Gap 12.9 (5-19); Aspartate Amino Transferase 21 U/L (0-32); Blood Urea Nitrogen 12 mg/dL (6-20); C Reactive Protein 4.3 mg/L (0.0-4.9); Calcium 9.2 mg/dL (8.5-10.5); Carbon Dioxide 29 mmol/L (22-29); Chloride 103 mmol/L (98-107); Creatinine Clr Calc Pharmacy 122.1576; Globulin 2.7 g/dL (1.3-4.6); Glomerular Filtration Rate 113.8 mL/min (90-130); Glucose 107 mg/dL (65-115); Osmolality Calculated 292 mOsm/kg (285-295); Potassium 3.9 mmol/L (3.5-5.1); Sodium 141 mmol/L (136-145); Total Bilirubin 0.2 mg/dL (0.15-1.2); Total Protein 6.7 g/dL (6.6-8.7)
[2022-05-09 21:59] LABS: Lactate (Lactic Acid level) 1.4 mmol/L (0.5-2.2)
[2022-05-09 22:00] LABS: Rapid Strep A Test Negative (Negative)
[2022-05-09 22:01] LABS: Add Urine Microscopic? YES; Amphetamines Screen Urine Positive (Negative); Barbiturates Screen Urine Negative (Negative); Benzodiazepines Screen Urine Negative (Negative); Bilirubin Urine Neg (Negative); Blood Urine Neg (Negative); Cocaine Screen Urine Negative (Negative); Glucose Urine UA Norm (Normal); Ketones Urine Negative (Negative); Leukocyte Esterase Urine 2+ (Negative); Nitrate Urine Negative (Negative); Opiate Screen Urine Positive (Negative); PCP Screen Urine Negative (Negative); Protein Urine Neg (Negative); Specific Gravity, Urine 1.015 (1.005-1.030); THC Screen Urine Positive (Negative); Urine Appearance Clear (CLEAR); Urine Color Yellow (Yellow); Urobilinogen Urine Norm (Negative); pH Urine 6.5 (5-7)
[2022-05-09 22:02] LABS: Add Urine Culture? No; Bacteria Urine TRACE /hpf; Mucus Urine 1+ /hpf; RBC Urine 0-4 /hpf (0-2)
[2022-05-09 22:04] LABS: Procalcitonin 0.04 ng/mL (0-0.5)
[2022-05-09 23:08] LABS: Adenovirus Not Detected (NOT DETECT); Chlamydia Pneumoniae Not Detected (NOT DETECT); Coronavirus 229E,HKU1,NL63,OC4 Not Detected (NOT DETECT); Human Metapneumovirus Not Detected (NOT DETECT); Human Rhinovirus/Enterovirus Not Detected (NOT DETECT); Influenza A Not Detected (NOT DETECT); Influenza A H1 Not Detected (NOT DETECT); Influenza A H1-2009 Not Detected (NOT DETECT); Influenza A H3 Not Detected (NOT DETECT); Influenza B Not Detected (NOT DETECT); Mycoplasma Pneumoniae Not Detected (NOT DETECT); Parainfluenza Virus Type 1 Not Detected (NOT DETECT); Parainfluenza Virus Type 2 Not Detected (NOT DETECT); Parainfluenza Virus Type 3 Not Detected (NOT DETECT); Parainfluenza Virus Type 4 Not Detected (NOT DETECT); Respiratory Syncytial Virus A Not Detected (NOT DETECT); Respiratory Syncytial Virus B Not Detected (NOT DETECT); SARS-COV-2 Not Detected (NOT DETECT)
--- NOTE | 2022-05-13 11:24 | DCPLANNER ---
05.12.22 - TCM called patient due to no primary care physician - patient sees Dr. Narayanan in [place]
== END 2022-05-09 23:53 | disposition home or self-care (01) ==
PROVIDERS: Emergency Provider Emergency Medicine
DX: L50.9 Urticaria, unspecified (principal); L40.9 Psoriasis, unspecified; F15.90 Other stimulant use, unspecified, uncomplicated; F11.90 Opioid use, unspecified, uncomplicated; F12.90 Cannabis use, unspecified, uncomplicated; Z20.822 Contact with and (suspected) exposure to COVID-19; Z87.891 Personal history of nicotine dependence
CPT/HCPCS: 36415; 80053; 80306; 81001; 83605; 84145; 85025; 86140; 87040; 87081; 87635; 87880; 96374; 96375; 99284; J1200; J2270; J2930; J3490; J7030

== ENCOUNTER 2022-06-04 23:05 | Emergency (ER) | payer MEDICAID, SELFPAY ==
[2022-06-04 23:15] VITALS: BP 116/76; PULSE 108; RESP 16; O2SAT 100; BMI 24.5
--- NOTE | 2022-06-04 23:53 | W.ED.ALLEREA ---
HPI - Allergic Reaction General: Chief complaint: Allergic Reaction Stated complaint: allergic rxn Time Seen by Provider: 06/04/22 23:49 History of Present Illness: HPI narrative: Patient is a 36-year-old female who comes to the ED for an allergic reaction. Patient states she took first dose of doxycycline about 4 hours ago and developed a rash and felt like her throat was feeling tight. Rash was on her hands and arms bilaterally and her abdomen. She took 50 mg of Benadryl a little over 3 hours ago and says her symptoms have improved some. She still feels a little throat tightening and her rash is getting better. Denies any other past allergic reactions. Denies any nausea/vomiting, shortness of breath or diarrhea. Associated symptoms: Deny abdominal pain, nausea, tongue swelling or vomiting Review of Systems Const: Denies: fever(s), chills or fatigue Eyes: Denies: change in vision or eye discomfort ENMT: Denies: throat pain, odynophagia, nasal discharge or nasal congestion Card: Denies: chest pain, palpitations, edema, swelling of feet/ankles, dyspnea on exertion or orthopnea Resp: Denies: dyspnea, productive cough or non-productive cough GI: Denies: abdominal pain, nausea, vomiting, diarrhea, constipation or hematochezia : Denies: flank pain, dysuria or hematuria Musc: Denies: neck pain, back pain or extremity swelling Skin/Breast: Denies: rash or new lesions Neuro: Denies: headache(s), numbness in extremities or weakness in extremities All/Imm: Reports: urticaria and throat swelling; Denies: tongue swelling or acute wheezing PFSH ED PFSH: Medical History Alcohol abuse Chronic use since 2014--she stopped all use of alcohol 06/30/2020 Drug use No pertinent past medical history neghx: htn,dm,thyroid,dvt/pe PCP: None Surgical History No pertinent past surgical history Family History Denies family history of Colon cancer Ovarian cancer Diabetes Heart disease Hypercholesteremia Breast cancer Hypertension Uterine cancer Thyroid disease Stroke Social History Smoking and tobacco status: former smoker Alcohol intake: current Female Reproductive History: Date of last menstrual period: 05/07/22 Physical Exam Const: COMMON NORMALS: patient oriented x3 HENMT: COMMON NORMALS: normocephalic HEAD & SCALP: normocephalic MOUTH: Normal oral and palatal mucosa present, lip normal and tongue normal THROAT: posterior oropharynx normal and uvula midline Neck/C-Spine: COMMON NORMALS: supple GENERAL: Yes normal visual inspection Resp: COMMON NORMALS: normal respiratory effort, No retractions, No use of accessory muscles and clear to auscultation bilaterally AUSCULTATION: clear to auscultation bilaterally Cardio: COMMON NORMALS: regular rate, regular rhythm, S1 normal heart sound present, S2 normal heart sound present, No gallops present (Cardio), No clicks present (Cardio), No murmurs present (Cardio) and Peripheral pulses 2+ throughout RATE: regular rate RHYTHM: regular rhythm HEART SOUNDS: S1 normal heart sound present and S2 normal heart sound present PERIPHERAL PULSES: Peripheral pulses 2+ throughout GI: COMMON NORMALS: Normal to inspection, nondistended, normoactive bowel sounds present, Soft to palpation, non-tender and no masses PALPATION: Yes Soft to palpation : COMMON NORMALS: Yes no CVA tenderness BLADDER/KIDNEY EXAM: Yes no CVA tenderness Back/Pelvis: COMMON NORMALS: no CVA tenderness Extremity: COMMON NORMALS: normal to inspection Neuro: COMMON NORMALS: patient oriented x3 GAIT: Yes Normal gait present Skin: GENERAL SKIN EXAM: dry skin Course Vital Signs: Vital signs: Vital Signs Pulse Rate 99 06/05/22 00:39 Respiratory Rate 16 06/05/22 00:39 Blood Pressure 116/76 06/04/22 23:15 Pulse Oximetry 100 06/05/22 00:39 Oxygen Delivery Me thod Room Air 06/05/22 00:39 MDM - Allergic Reaction Medical Decision Making Patient is a 36-year-old female who comes to the ED for an allergic reaction. Patient states she took first dose of doxycycline about 4 hours ago and developed a rash and felt like her throat was feeling tight. Rash was on her hands and arms bilaterally and her abdomen. She took 50 mg of Benadryl a little over 3 hours ago and says her symptoms have improved some. She still feels a little throat tightening and her rash is getting better. Denies any other past allergic reactions. Denies any nausea/vomiting, shortness of breath or diarrhea. Vitals are stable. Exam of patient is benign and she appears nontoxic and in no acute distress or pain. Patient was given dose of Solu-Medrol and Benadryl here in the ED and her symptoms completely resolved. She was stable for discharge home and diagnosed with allergic reaction likely due to doxycycline. I wrote her a new prescription for clindamycin. Follow-up with PCP in the next week for reevaluation. Return to ED precautions given. Patient understood and agreed with plan. Discharge Plan Discharge Patient Disposition: Home Clinical Impression: Allergic reaction Qualifiers: Encounter type: initial encounter Qualified Code(s): T78.40XA - Allergy, unspecified, initial encounter Condition: Stable Prescriptions: New clindamycin HCl 150 mg capsule 300 mg PO Q6H 7 Days Qty: 56 0RF No Action metronidazole 500 mg tablet 500 mg PO BID mupirocin 2 % ointment 1 applic topical BID fluticasone propionate [Flonase Allergy Relief] 50 mcg/actuation spray,suspension 1 spray intranasal DAILY Rx Instructions: administer into each nostril amoxicillin 500 mg capsule 500 mg PO BID azithromycin 250 mg tablet See Rx Instructions .ROUTE .COMPLEX Qty: 6 0RF Rx Instructions: For 250 mg dose pack: take 500 mg today (day 1), then 250 mg for 4 days (days 2-5) ketorolac 10 mg tablet 10 mg PO TID PRN (Reason: pain) Qty: 10 0RF ondansetron 4 mg tablet,disintegrating 4 mg PO Q6H PRN (Reason: nausea and vomiting) Qty: 14 0RF hydroxyzine HCl 25 mg tablet 25 mg PO Q6H PRN (Reason: itching, rash) Qty: 20 0RF hydrocodone-acetaminophen 5-325 mg tablet 1 tab PO Q6H PRN (Reason: pain) Qty: 12 0RF triamcinolone acetonide 0.1 % cream 1 applic topical TID Qty: 80 0RF oxycodone 5 mg tablet 5 mg PO Q4H PRN (Reason: pain) Qty: 10 0RF Discharge Orders: Discharge ED (Routine); Ordered 06/05/22 Ordered By: Delbert Bansal Referrals: Christianson,Sarah Bibiana, VEHICLE DELIVERY WORKER [Primary Care Provider] - Discharge Diet: Regular Discharge Activity: Increase activity as tolerated Activity Restrictions/Additional Instructions: Follow-up with medical provider as directed in the next 5 to 7 days for reevaluation. Take medications as prescribed. Return to the ER or your medical provider if condition worsens. Please read and understand discharge instructions. Thank you for choosing [facility] for your healthcare needs today. Please realize this is an emergency room and that we are providing you with a medical screening exam and this may not be complete and all inclusive of all the testing and or work up that you may need to determine your ailment or severity of your illness. It is very important that you follow up as instructed or that you return to the Emergency Department should you have concerns or if your condition changes or worsens in any way. Coding Level of Care Code ED Psychiatric Nurse Practitioner for Elkin Mendoza
[2022-06-04] MEDS: diphenhydrAMINE 25 mg Capsule PO (23:57)
[2022-06-05 00:39] VITALS: PULSE 99; RESP 16; O2SAT 100
== END 2022-06-05 00:51 | disposition home or self-care (01) ==
PROVIDERS: Emergency Provider Physician Assistant; PCP Nurse Practitioner
DX: T78.40XA Allergy, unspecified, initial encounter (principal); Z87.891 Personal history of nicotine dependence; X58.XXXA Exposure to other specified factors, initial encounter
CPT/HCPCS: 96372; 99284; J2930

== ENCOUNTER → 2022-12-16 08:36 | Outpatient (BNVA) | payer MEDICAID, SELFPAY | PROVIDERS: PCP Nurse Practitioner; Visit Provider Nurse Practitioner Women's Health | DX: O09.899 Supervision of other high risk pregnancies, unspecified trimester (principal); Z3A.14 14 weeks gestation of pregnancy | CPT/HCPCS: 80307; 81000; 87086; 87491; 87591 ==

== ENCOUNTER → 2022-12-20 10:16 | Outpatient (BNVA) | payer MEDICAID, SELFPAY | PROVIDERS: PCP Nurse Practitioner; Visit Provider Obstetrics & Gynecology | DX: Z36.87 Encounter for antenatal screening for uncertain dates (principal) | CPT/HCPCS: 76801 ==

== ENCOUNTER 2023-05-27 11:32 | Outpatient (CLI) | payer MEDICAID, SELFPAY ==
[2023-05-27 11:58] VITALS: BP 121/72; PULSE 67
[2023-05-27 12:00] VITALS: BMI 32.4
[2023-05-27 12:18] VITALS: BP 108/67; PULSE 77
== END 2023-05-27 12:40 | disposition home or self-care (01) ==
LOC: OPOB 11:39 → OBGYN 11:41
PROVIDERS: PCP Nurse Practitioner; Visit Provider Family Medicine
DX: O09.529 Supervision of elderly multigravida, unspecified trimester (principal); Z3A.00 Weeks of gestation of pregnancy not specified
CPT/HCPCS: 59025

== ENCOUNTER 2023-06-01 13:34 | Outpatient (CLI) | payer MEDICAID, SELFPAY ==
[2023-06-01] VITALS (8 sets, daily range): BP systolic 99–123; BP diastolic 55–80; PULSE 72–82; TEMP 36.2; BMI 33.1
--- NOTE | 2023-06-01 14:59 | US_ITS ---
WS: [id number] BIOPHYSICAL PROFILE AMNIOTIC FLUID HISTORY: non reactive NST COMPARISON: No recent exams. position: Vertex. Cardiac activity: 145 bpm. Cervix: closed. Placenta: Posterior and fundal. No previa or abruption. Placenta grade: 3 Parameters are as follows: Breathin Movement: 2 Tone: 2 Fluid volume: 2 Amniotic Fluid; normal. OLGA 14.7 cm. IMPRESSION: 1. Biophysical profile score: 8/8. 2. Grade 3 placenta.
[2023-06-01] MEDS: lactated ringers 1,000 ML 999 ML IV (16:36)
== END 2023-06-01 17:33 | disposition home or self-care (01) ==
LOC: OPOB 13:48 → OBGYN 13:51
PROVIDERS: PCP Nurse Practitioner; Visit Provider Family Medicine
DX: O09.519 Supervision of elderly primigravida, unspecified trimester (principal); Z3A.00 Weeks of gestation of pregnancy not specified
CPT/HCPCS: 36415; 59025; 76819; 96365; 99211; J7120

== ENCOUNTER 2023-06-04 17:10 | Outpatient (CLI) | payer MEDICAID, SELFPAY ==
[2023-06-04 17:10] VITALS: BMI 33.5
[2023-06-04 17:18] VITALS: BP 121/81; PULSE 85
[2023-06-04 17:39] VITALS: BP 131/82; PULSE 82
[2023-06-04 17:58] VITALS: BP 126/84; PULSE 79
[2023-06-04 18:13] VITALS: BP 126/84; PULSE 79; RESP 18
== END 2023-06-04 18:10 | disposition home or self-care (01) ==
LOC: OPOB 17:13 → OBGYN 17:14
PROVIDERS: PCP Nurse Practitioner; Visit Provider Family Medicine
DX: O09.519 Supervision of elderly primigravida, unspecified trimester (principal); Z3A.00 Weeks of gestation of pregnancy not specified
CPT/HCPCS: 59025; 99211

== ENCOUNTER 2023-06-07 09:50 | Outpatient (CLI) | payer MEDICAID, SELFPAY ==
[2023-06-07 09:54] VITALS: BMI 32.9
[2023-06-07 09:55] VITALS: BP 118/71; PULSE 64
[2023-06-07 10:15] VITALS: BP 136/85; PULSE 80
[2023-06-07 10:35] VITALS: BP 118/74; PULSE 75
[2023-06-07 10:53] VITALS: BP 118/74; PULSE 75
== END 2023-06-07 10:53 | disposition home or self-care (01) ==
LOC: OPOB 09:51 → OBGYN 09:52
PROVIDERS: Absent Provider Family Medicine; PCP Nurse Practitioner; Visit Provider Family Medicine
DX: O26.899 Other specified pregnancy related conditions, unspecified trimester (principal); Z3A.00 Weeks of gestation of pregnancy not specified
CPT/HCPCS: 59025

== ENCOUNTER 2023-06-14 09:43 | Outpatient (CLI) | payer MEDICAID, SELFPAY ==
[2023-06-10 09:31] VITALS: RESP 17
[2023-06-14 10:58] VITALS: BP 121/77; PULSE 79
--- NOTE | 2023-06-14 11:01 | US_ITS ---
WS: [id number] BIOPHYSICAL PROFILE AMNIOTIC FLUID HISTORY: non reactive NST. advanced maternal age COMPARISON: 06/01/2023 position: Vertex. Cardiac activity: 150 bpm. Cervix: Obscured by the head. Placenta: Posterior and fundal, no previa or abruption. Placenta grade: 3 Parameters are as follows: Breathin Movement: 2 Tone: 2 Fluid volume: 2 Amniotic fluid index 11.2 cm. IMPRESSION: 1. Biophysical profile score: 8/8. 2. Grade 3 placenta.
[2023-06-14 11:18] VITALS: BP 115/76; PULSE 77
[2023-06-14 11:39] VITALS: BP 111/60; PULSE 75
== END 2023-06-14 12:05 | disposition home or self-care (01) ==
LOC: OPOB 09:46 → OBGYN 09:47
PROVIDERS: PCP Nurse Practitioner; Visit Provider Family Medicine
DX: O09.529 Supervision of elderly multigravida, unspecified trimester (principal); Z3A.00 Weeks of gestation of pregnancy not specified
CPT/HCPCS: 59025; 76819; 99211

== ENCOUNTER 2023-06-15 21:10 | Inpatient (IN) | payer MEDICAID, SELFPAY ==
[2023-06-15] VITALS (11 sets, daily range): BP systolic 108–127; BP diastolic 63–82; PULSE 67–85; BMI 33.3
[2023-06-15 22:30] LABS: Basophils % 0.3 %; Eosinophils # 0.1 10^3/uL (0.0-0.8); Eosinophils % 1.3 %; Hematocrit 34.5 % (36-47); Lymphocytes # 1.8 10^3/uL (0.8-4.8); Lymphocytes % 18.2 %; Mean Corpuscular HGB Conc 34.8 g/dL (30-55); Mean Corpuscular Hemoglobin 31.3 pg (27-33); Mean Corpuscular Volume 90.1 fl (85-98); Mean Platelet Volume 12.6 fL (7.4-10.4); Monocytes # 0.5 10^3/uL (0.2-0.9); Monocytes % 4.7 %; Neutrophils # 7.54 10^3/uL (1.8-7.7); Nucleated Red Blood Cells % 0 %; Platelet Count 194 10^3/cmm (157-399); Red Blood Count 3.83 10^6/uL (3.85-5.65); Red Cell Distribution Width 12.7 % (12.1-15.1); White Blood Count 10.05 10^3/uL (3.29-11.43)
[2023-06-15] MEDS: dextrose 5%-lactated ringers 1,000 ML 125 ML IV (22:31)
[2023-06-15] MEDS: ampicillin 2,000 MG in sodium chloride 0.9% (plus) 50 ML 100 MG IV (22:31)
[2023-06-15] MEDS: oxytocin 30 UNIT/500 ML BAG IV (23:07)
[2023-06-16] VITALS (93 sets, daily range): BP systolic 73–153; BP diastolic 40–85; PULSE 59–184; RESP 16–18; TEMP 36.1–36.8; O2SAT 97–99
[2023-06-16 01:21] LABS: Amphetamines Screen Urine Negative (Negative); Barbiturates Screen Urine Negative (Negative); Benzodiazepines Screen Urine Negative (Negative); Cocaine Screen Urine Negative (Negative); Opiate Screen Urine Negative (Negative); PCP Screen Urine Negative (Negative); THC Screen Urine Negative (Negative)
[2023-06-16] MEDS: lactated ringers 1,000 ML 999 ML IV ×2 (01:48→03:45)
[2023-06-16] MEDS: ampicillin 1,000 MG in sodium chloride 0.9% (plus) 50 ML 100 MG IV ×2 (02:38→07:14)
[2023-06-16] MEDS: ROPivacaine syringe 100 MG/50 ML SYRINGE 10 MG EPIDURAL ×2 (03:16→07:31)
--- NOTE | 2023-06-16 03:21 | ANES.PROC ---
Anesthesia Procedures Procedure/Date: 06/16/23 Epidural: Time Out Performed: Yes Consents Signed: Procedure Consent Consent: requested by attending/covering physician, from patient, risks and benefits reviewed and patient agrees to proceed Lumbar Level: L3-L4 Epidural position: sitting Epidural procedure: sterile prep of area, 1% lidocaine to numb the area, negative for paresthesia passed, neg for paresthesia, test dose given, 0.2% Ropivacaine bolus ml (5), no systemic response, sterile dressing applied, L.U.D. no apparent complications and 0.2% Ropiavacaine @ mls/hr (10 ml) Additional Comments: JEAN CARLOS at 7cm on 3rd attempt. Catheter threaded to 13cm, - heme, - csf, - paresthesia .
--- NOTE | 2023-06-16 03:24 | ANES.PREANE2 ---
Pre-Anesthetic Assessment Height/Weight: Height 1.63 m Weight 87.997 kg Temp Pulse BP Pulse Ox 97.0 F L 71 105/57 97 06/16/23 00:31 06/16/23 03:19 06/16/23 03:19 06/16/23 03:18 Preop Diagnosis: IUP Familial anesthetic complications: none Was Beta Jennifer taken within 24 hours: N/A Was Clonidine taken within 24 hours: N/A Social No alcohol and No tobacco Exam alert, oriented x 3, clear to auscultation bilaterally and regular rate & rhythm Airway Submandibular: within normal limits Cervical ROM: within normal limits Mallampati: Class II Dentition: full Pulmonary None reported CV/HEM None reported None reported Hepatic Hepatitis GI Gastroesophageal Reflux Disease Metabolic None reported Musc/skel None reported Neuropsych None reported Anesthetic Plan ASA status: 2 Anesthesia: Regional (specify below) Other: Labor Epidural Medications/Allergies Home Medications Medication Instructions Recorded Confirmed Last Taken Type vits no.124-ferrous fum 1 tab PO DAILY 06/01/23 06/14/23 06/14/23 History 27 mg iron-folic acid 800 mcg tablet ( Vitamin) Allergies Allergy/AdvReac Type Severity Reaction Status Date / Time doxycycline AdvReac ADR-Itching Verified 12/16/22 08:50 Current Medications Generic Name Dose Route Start Last Admin Trade Name David PRN Reason Stop Dose Admin Lactated Ringer's 1,000 mls @ 999 mls/hr 06/15/23 21:41 06/16/23 01:48 Lactated Ringers IV 999 mls/hr .Q1H1M PRN Administration Per L&D Rescitation Protocol Ampicillin Sodium 1,000 mg/ 50 mls @ 100 mls/hr 06/16/23 01:45 06/16/23 03:08 Sodium Chloride IV Infused Q4H SHYAM Infusion Protocol Oxytocin 30 unit in 500 mls @ 1 mls/hr 06/15/23 21:45 06/16/23 00:30 Pitocin IV 7 milliunit/min .Q24H SHYAM 7 mls/hr Titration Protocol 1 MILLIUNIT/MIN Dextrose/Lactated Ringer's 1,000 mls @ 125 mls/hr 06/15/23 21:45 06/16/23 01:20 Dextrose 5%-Lactated Ringers IV 118 mls/hr .Q8H SHYAM Infusion [facility] Anesthesia Medical History Alcohol abuse Chronic use since 2014--she stopped all use of alcohol 06/30/2020 Drug use No pertinent past medical history neghx: htn,dm,thyroid,dvt/pe PCP: None Surgical History No pertinent past surgical history Family History Denies family history of Colon cancer Ovarian cancer Diabetes Heart disease Hypercholesteremia Breast cancer Hypertension Uterine cancer Thyroid disease Stroke Social History Smoking and tobacco/nicotine status: former use of tobacco/nicotine Alcohol intake: current Substance/Drug Use: former Female Reproductive History : 5 Data Anesthesia 06/15/23 21:13 Short CBC 06/15/23 Range/Units 21:13 WBC 10.05 (3.29-11.43) 10^3/uL Hgb 12.00 (11.27-16.99) g/dL Hct 34.5 L (36-47) % MCV 90.1 (85-98) fl Plt Count 194 (157-399) 10^3/cmm Neut % (Auto) 75.0 % Neut # (Auto) 7.54 (1.8-7.7) 10^3/uL Blood Bank 06/15/23 21:13 Blood Type O Positive Rho(D) Type Rh positive Antibody Screen Negative Cardiac Studies: No Data to Display
[2023-06-16] MEDS: ondansetron 2 mg/ML SDV 2 mL 4 MG IVP (03:53)
[2023-06-16] MEDS: dextrose 5%-lactated ringers 1,000 ML 125 ML IV (07:14)
--- NOTE | 2023-06-16 09:00 | PM.OPHPUD ---
Labor & Delivery H&P Update Date of Procedure: June 16, 2023 Date H&P Performed: 09/17/20 Admission Diagnosis: at 39 weeks gestation AMA Hepatitis C antibody positive, viral load negative Group B strep carrier Preop diagnosis: IUP Planned procedure: Induction of labor and delivery
--- NOTE | 2023-06-16 09:02 | P.PCNOB_ITS ---
Delivery Note: Date of delivery: June 16, 2023 Pre-delivery diagnoses: IUP at 39 weeks 1 day gestation Advanced maternal age Group B strep carrier Hepatitis C antibody positive, viral load negative Procedure: Normal spontaneous vaginal delivery Estimated blood loss (mL): 100 Pre-Delivery Course: The patient was in retirement during most of her . She established with me when she was released and that was at 36 weeks gestation. Her due date is June 21 by a 13-week ultrasound performed at [facility]. Note her [facility] records give an KARLA of June 27 (but this is incorrect since it is by a 20-week ultrasound.) Delivery: This is a 37-year-old G5, P3 at 39 weeks 1 day gestation who was admitted for induction secondary to advanced maternal age. The patient was in retirement most of her and had received care there. She established with me Dr. Diggs at approximately 36 weeks gestation. She was started on twice weekly NSTs at that time for advanced maternal age. Interestingly she had a couple failed NSTs but would receive a biophysical profile of 8 out of 8. The patient cervix was favorable for induction. She was known to be GBS positive in her urine so she was started on ampicillin protocol. She was then placed on Pitocin. She received an epidural for pain management. Her labor progressed well on its own. She was complete complete with a bulging bag of membranes through the introitus. Membranes were snipped with scissors and clear fluid was present. The patient only had to push through 2 contractions and had a normal spontaneous vaginal delivery of a viable female infant weight 3290 g, 7 pounds 4 ounces, Apgars 9 and 9 over an intact perineum. The was suctioned at delivery and placed on the mother's chest. The cord was clamped and cut. The placenta was delivered grossly intact and normal to inspection though somewhat small. There was a first-degree vaginal laceration that was sutured using 1 stitch of 3-0 chromic for hemostasis. Mother and infant were doing well after delivery. Estimated blood loss 100 mL. She received at least 3 doses of ampicillin prior to delivery. History History History 4 Term 3 0 Miscarriages/Ectopic 1 Living Children 3 Coding Level of Care Code Acute Code for Chg Fwd
[2023-06-16] MEDS: benzocaine-menthol 78 gm Canister 1 SPRAY TOPICAL (10:47)
[2023-06-16] MEDS: acetaminophen 325 mg Tablet 650 MG PO (12:05)
--- NOTE | 2023-06-16 13:47 | ANE.PACU2 ---
Inpatient post-anesthesia follow up: Airway intact: Yes Vital signs: Temperature 98.1 F Pulse Rate 76 Respiratory Rate Blood Pressure 100/58 Pulse Oximetry 98 Oxygen Delivery Me thod Room Air Oxygen Flow Rate Fraction of Inspir ed Oxygen Hydration adequate: Yes Nausea and vomiting: No Pain level: 1 Mental status: Baseline Epidural Start/End: Epidural Start Date: 06/16/23 Epidural Start Time: 02:42 Epidural End Date: 06/16/23 Epidural End Time: 08:25
[2023-06-16] MEDS: ibuprofen 800 mg tablet PO ×2 (15:42→21:25)
[2023-06-16] MEDS: docusate sodium 100 mg Capsule PO (21:25)
[2023-06-16 21:54] LABS: Mean Corpuscular HGB Conc 34.5 g/dL (30-55); Mean Corpuscular Hemoglobin 31.8 pg (27-33); Mean Corpuscular Volume 92.2 fl (85-98); Platelet Count 161 10^3/cmm (157-399); Red Blood Count 3.58 10^6/uL (3.85-5.65); Red Cell Distribution Width 12.9 % (12.1-15.1); White Blood Count 12.71 10^3/uL (3.29-11.43)
[2023-06-17 03:00] VITALS: BP 105/67; PULSE 79; RESP 18; TEMP 36.5
[2023-06-17] MEDS: acetaminophen 325 mg Tablet 650 MG PO (03:01)
[2023-06-17] MEDS: docusate sodium 100 mg Capsule PO ×2 (07:55→20:04)
[2023-06-17] MEDS: PRENATAL VIT NO.130/IRON/FOLIC 1 EACH TABLET PO (07:55)
[2023-06-17] MEDS: ibuprofen 800 mg tablet PO ×3 (07:55→20:05)
--- NOTE | 2023-06-17 08:06 | PC.NURSE ---
Delia with children division is in room at this time.
--- NOTE | 2023-06-17 09:04 | PC.CHAP ---
Pastoral Care Encounter/Spiritual Assessment Type of Contact [] Declined school photograph editor visit [] Patient/Family/Request visit [] Outpatient visit [] Follow-up visit [] Physician referral [] Code/Alert [x] Routine visit [] Staff referral [] Actively dying [] Patient sleeping [] Family support [] [] Out of room [] Palliative care [] [] Receiving care in room [] Pre-surgical visit [] Trauma [] Long length of stay [] ICU visit [] Other: Relational/Emotional Strength [x] Patient feels connected with others/family/visitors/staff [] Distress [] Loneliness/isolation [] Abandonment Spirituality of Patient [x] Person of Destiny [x] Attends Muslim of their Destiny [x] Believes in Prayer [x] Reads Bible or Synagogue materials [] There are Spiritual issues to be addressed Tanker Service Attendant Interventions [x] Prayer [x] Active listening [x] Non-anxious presence [x] Spiritual/emotional support [] Crisis/trauma care [] Spiritual counseling [] Bereavement support [] Provided bereavement packet [x] Provided Bible/devotional materials [x] Provided toy/stuffed animal, coloring book to patient or family member [] Provided Communion [] Anointing/[place] [] Salvation [x] Completed spiritual assessment [] Other: Impact on Illness or Injury [] Angry [] Fearful [] Anxious [] Often cries [] Exhaustion [] Unable to work [] Unable to attend pentecostal [] Unable to walk/stand [] Unable to read [] Unable to drive [] Unable to eat/drink [] Unable to sleep [] Unable to be with family [] Patient intubated [] Other: Summary Time spent with patient 15 min
[2023-06-17 09:38] VITALS: BP 115/75; PULSE 79; TEMP 36.7; O2SAT 98
--- NOTE | 2023-06-17 11:54 | P.PN_ITS ---
Subjective 2 Subjective: Doing well. Bleeding is about average. She has some swelling but no other complaints Vitals/I&O/Wt Last Vital Signs Temp 98.1 F 06/17/23 09:38 Pulse 79 06/17/23 09:38 Resp 18 06/17/23 03:00 BP 115/75 06/17/23 09:38 Pulse Ox 98 06/17/23 09:38 O2 Del Method Room Air 06/17/23 09:38 Weight last 48 hrs Weight 87.997 kg Physical Exam 2 Narrative: Alert and oriented, walking around the room, heart regular rate and rhythm, lungs clear to auscultation bilaterally, abdomen soft and nontender, fundus is firm, extremities have trace edema Urinary Catheter Management: Lee Latex: Cath Placed During This Visit: yes Reason for Continuing Indwelling Catheter: Accurate Measurement of Urinary Output in Critically Ill Patients Urinary Catheter Date of Insertion: 06/16/23 Urinary Catheter Time of Insertion: 03:45 Data 06/16/23 21:25 A&P Assessment and plan (1) Normal spontaneous vaginal delivery: Routine care Attestations 2 Medical Necessity Statement*: Routine care Coding Level of Care Code Acute Code for Chg Fwd Diagnoses Normal spontaneous vaginal delivery O80
[2023-06-17 16:35] VITALS: BP 109/87; PULSE 84; TEMP 36.7
[2023-06-17 22:21] VITALS: BP 117/75; PULSE 74; TEMP 36.6; O2SAT 98
[2023-06-18] MEDS: docusate sodium 100 mg Capsule PO (08:30)
[2023-06-18] MEDS: ibuprofen 800 mg tablet PO ×2 (08:30→14:43)
[2023-06-18] MEDS: PRENATAL VIT NO.130/IRON/FOLIC 1 EACH TABLET PO (08:30)
[2023-06-18 09:29] VITALS: BP 111/72; PULSE 86; RESP 16; TEMP 36.9
--- NOTE | 2023-06-18 13:24 | P.DS_ITS ---
Discharge Providers Date of Admission: 06/15/23 21:10 Date of Discharge: June 18, 2023 Attending Provider at Admission: Jami Diggs MD Attending Provider at Discharge: Jami Diggs MD Primary Care Provider: NOLVIA Murillo Diagnoses at Discharge Discharge Diagnosis (1) Normal spontaneous vaginal delivery: Status: Acute Reason for Visit Reason for Visit: IOL Hospital Course Hospital Course This is a 37-year-old G5 now P4 who was admitted for induction at 39 weeks 1 day gestation. She had a normal spontaneous vaginal delivery of a viable female infant. She has done well . She is ambulating, tolerating a regular diet, has average vaginal bleeding and is comfortable with discharge home. Physical Exam Narrative: Alert and oriented, resting in bed, heart regular rate and rhythm, lungs clear to auscultation bilaterally, abdomen is soft and nontender, fundus is firm, extremities have trace edema but no calf tenderness. Urinary Catheter Management: Lee Latex: Cath Placed During This Visit: yes Reason for Continuing Indwelling Catheter: Accurate Measurement of Urinary Output in Critically Ill Patients Urinary Catheter Date of Insertion: 06/16/23 Urinary Catheter Time of Insertion: 03:45 Discharge Data Studies Completed and Pending Laboratory Results WBC 12.71 10^3/uL (3.29-11.43) H 06/16/23: RBC 3.58 10^6/uL (3.85-5.65) L 06/16/23 21: Hgb 11.40 g/dL (11.27-16.99) 06/16/23: Hct 33.0 % (36-47) L 06/16/23: MCV 92.2 fl (85-98) 06/16/23 21: MCH 31.8 pg (27-33) 06/16/23 21: MCHC 34.5 g/dL (30-55) 06/16/23: RDW 12.9 % (12.1-15.1) 06/16/23: Plt Count 161 10^3/cmm (157-399) 06/16/23 21: MPV 12.0 fL (7.4-10.4) H 06/16/23 21: Neut % (Auto) 75.0 % 06/15/23 21: Lymph % (Auto) 18.2 % 06/15/23 21:13 [place] % (Auto) 4.7 % 06/15/23 21:13 Eos % (Auto) 1.3 % 06/15/23 21:13 Baso % (Auto) 0.3 % 06/15/23 21:13 Neut # (Auto) 7.54 10^3/uL (1.8-7.7) 06/15/23 21:13 Lymph # (Auto) 1.8 10^3/uL (0.8-4.8) 06/15/23 21:13 [place] # (Auto) 0.5 10^3/uL (0.2-0.9) 06/15/23 21:13 Eos # (Auto) 0.1 10^3/uL (0.0-0.8) 06/15/23 21:13 Baso # (Auto) 0.0 10^3/uL (0.0-0.1) 06/15/23 21:13 Nucleated RBC % (auto) 0 % 06/15/23 21:13 Nucleated RBCs # 0.0 /100WBC 06/15/23 21:13 Urine Opiates Screen Negative ng/mL (Negative) 06/16/23 00:45 Ur Barbiturates Screen Negative ng/mL (Negative) 06/16/23 00:45 Ur Phencyclidine Scrn Negative ng/mL (Negative) 06/16/23 00:45 Ur Amphetamines Screen Negative ng/mL (Negative) 06/16/23 00:45 U Benzodiazepines Scrn Negative ng/mL (Negative) 06/16/23 00:45 Urine Cocaine Screen Negative ng/mL (Negative) 06/16/23 00:45 U Marijuana (THC) Screen Negative ng/mL (Negative) 06/16/23 00:45 Blood Type O Positive 06/15/23 21:13 Rho(D) Type Rh positive 06/15/23 21:13 Antibody Screen Negative 06/15/23 21:13 Vitals Last Vital Signs Temp 98.4 F 06/18/23 09:29 Pulse 86 06/18/23 09:29 Resp 16 06/18/23 09:29 BP 111/72 06/18/23 09:29 Pulse Ox 98 06/17/23 22:21 O2 Del Method Room Air 06/18/23 09:29 Discharge Plan Discharge Patient Disposition: Home Condition: Stable Prescriptions: Continued Vitamin 27 mg iron- 800 mcg Tablet 1 tab PO DAILY Discharge Orders: Discharge Order (Routine); Ordered 06/18/23 Ordered By: Jami Diggs Referrals: Jami Diggs MD [Physician] - 1 month Discharge Diet: Usual diet Discharge Activity: Limit activity as instructed Patient Instructions: Depression (DC), Opioid Safety (DC), Preeclampsia and Eclampsia After Delivery (GEN), Hemorrhage (DC), OB Discharge Report, OB Food/Drug Interaction Guide, OB Care at Home, Opioid Safety, OB Vaginal Deliveries, Abnormal Bleeding Activity Restrictions/Additional Instructions: Nothing per vagina for 6 weeks Discharge Attestations Time Spent in Discharge Care*: less than 30 min Quality Metrics Clinical Quality Measures [ No reported AMI, CVA or VTE this stay] Coding Level of Care Code Acute Code for Chg Fwd Diagnoses Normal spontaneous vaginal delivery O80
[2023-06-18 14:45] VITALS: BP 115/76; PULSE 74; RESP 15; TEMP 36.9; O2SAT 99
[2023-06-18 14:55] VITALS: BP 115/76; PULSE 74; RESP 15; TEMP 36.9; O2SAT 99
== END 2023-06-18 14:55 | disposition home or self-care (01) | DRG 806 ==
LOC: OPOB 21:17 → OBGYN 21:17
PROVIDERS: Admitting Provider Family Medicine; PCP Nurse Practitioner; Visit Provider Family Medicine
DX: O99.824 Streptococcus B carrier state complicating childbirth (principal); O98.42 Viral hepatitis complicating childbirth; Z37.0 Single live birth; B19.20 Unspecified viral hepatitis C without hepatic coma; O70.0 First degree perineal laceration during delivery; Z3A.39 39 weeks gestation of pregnancy
CPT/HCPCS: 36415; 51702; 59025; 59409; 80306; 85025; 85027; 86850; 86900; 96374; 99211; J0290; J2405; J2590; J2795; J7120; J7121